=== PATIENT | female | born 1945 | race African-American/Black ===

== ENCOUNTER 2018-08-19 06:06 | Inpatient (IN) | payer OTHER ==
[~2018-08-19] VITALS: Ht 167.6 cm; Wt 79.4 kg
[2018-08-19] MEDS ORDERED: FERR18TA2 PO (06:54)
[2018-08-19] MEDS ORDERED: CLO01T PO (06:54)
[2018-08-19] MEDS ORDERED: NIFE30TA76 PO (06:54)
[2018-08-19] MEDS ORDERED: INS7030I SC (06:54)
[2018-08-19] MEDS ORDERED: FERR1TAB17 PO (06:54)
[2018-08-19] MEDS ORDERED: LISI10TA6 PO (06:54)
[2018-08-19] MEDS ORDERED: ATOR20TA50 PO (06:54)
[2018-08-19] MEDS ORDERED: CARV6.2551 PO (06:54)
[2018-08-19] MEDS ORDERED: ALLO100T PO (06:54)
[2018-08-19] MEDS ORDERED: HYDROcodone-ACET 10/325MG TAB PO ONE (07:00)
[2018-08-19] MEDS ORDERED: SODIUM CHLORIDE 0.9% 1,000 ML IV ONE (08:19)
[2018-08-19 08:52] LABS: Basophils # (auto) 0 uL; Basophils % (auto) 0.5 % (0.0-2.0); Eosinophils # (auto) 0 uL; Eosinophils % (auto) 0.5 % (0.0-7.0); Hematocrit 31.8 % (36.0-46.0); Hemoglobin 10.6 g/dL (12.2-16.2); Lymphocytes # (auto) 1.2 uL; Lymphocytes % (auto) 17.4 % (10.0-50.0); Mean Corpuscular Hemoglobin 31.3 pg (28.0-32.0); Mean Corpuscular Hgb Conc. 33.4 g/dL (32.0-36.0); Mean Corpuscular Volume 93.6 fL (80.0-100.0); Monocytes # (auto) 0.3 uL; Monocytes % (auto) 4.3 % (0.0-12.0); Neutrophils # (auto) 5.2 uL; Neutrophils % (auto) 77.3 % (37.0-80.0); Platelet Count (auto) 147 10^3/uL (140-450); Red Cell Distribution Width 15.5 % (11.8-14.3); White Blood Cell 6.7 10^3/uL (4.4-10.8)
[2018-08-19] MEDS ORDERED: ONDANSETRON HCL 4 MG/2 ML VIAL IV ONE (09:00)
[2018-08-19] MEDS ORDERED: MORPHINE SULFATE 4 MG/ML SYR/VIAL IV ONE (09:00)
[2018-08-19 09:11] LABS: Albumin 3.8 g/dL (3.4-5.0); Anion Gap 7 (5-15); Blood Urea Nitrogen 37 mg/dL (7-18); Calcium 9.3 mg/dL (8.5-10.1); Carbon Dioxide 21 mmol/L (21-32); Chloride 113 mmol/L (98-107); Glucose 128 mg/dL (74-106); Sodium 141 mmol/L (136-145)
[2018-08-19 09:13] LABS: Alanine Aminotransferase 33 U/L (13-56); Aspartate Aminotransferase 32 U/L (15-37); BUN/Creatinine Ratio 13.1; GFR African American 21 mL/min; GFR Non-African American 17 mL/min
[2018-08-19 09:18] LABS: Alkaline Phosphatase 65 U/L (45-117); Bilirubin, Total 0.3 mg/dL (0.2-1.0); Total Protein 8.5 g/dL (6.4-8.2)
[2018-08-19 09:41] LABS: Partial Thromboplastin Time 25.7 sec (23.78-33.04); Prothrombin Time 10.7 sec (9.27-12.13)
[2018-08-19] MEDS ORDERED: hydrALAZINE HCL 20 MG/ML VL IV PRN (13:00)
[2018-08-19] MEDS ORDERED: ACETAMINOPHEN 500 MG TAB PO PRN (13:00)
[2018-08-19] MEDS ORDERED: HYDROcodone-ACET 5/325MG TAB PO PRN (13:00)
[2018-08-19] MEDS ORDERED: ONDANSETRON HCL 4 MG/2 ML VIAL IV PRN (13:00)
[2018-08-19] MEDS ORDERED: DEXTROSE (50%) 50ML SYRG IV PRN (13:00)
--- NOTE | 2018-08-19 15:33 | NUR ---
MS admit from ER JESSEMIKIE admitted to tele/MS with chief c/o hip and back pain. Patient oriented to primary RN, unit, room, bed, and unit policies regarding patient care and visiting hours.instructed and educated on safety and pain mangement and turning.vital signs taken BP 160/79,room air 02 sat 100%,HR 66,temp 98.3 encouraged to call for assistance call light within reach. All questions and concerns addressed, patient verbalized understanding.
[2018-08-19] MEDS: ACCU-CHEK COMFORT CURVE STRIP VI SCH ×2 (17:00→21:39)
[2018-08-19] MEDS: InsuLIN REG 1unit/0.01ml Soln (100units/ml) SC SCH ×2 (18:57→22:01)
[2018-08-19] MEDS: MORPHINE SULF INJ 2 MG/ML SYRINGE 1ML IV PRN (18:58)
--- NOTE | 2018-08-19 19:05 | NUR ---
Opening Shift Note Assumed care of patient, awake and alert. No S/S of distress/SOB or pain. Instructed on POC and to call for assistance PRN, will continue to monitor for changes Q1hr and PRN.
--- NOTE | 2018-08-19 19:14 | NUR ---
STATUS UNCHANGED,REPORT GIVEN TO INCOMING NOC SHIFT RN ,NO DISTRESS.
[2018-08-19 21:30] VITALS: BP 163/73
[2018-08-19] MEDS: DOCUSATE SOD 100 MG CAP PO SCH (21:38)
[2018-08-19] MEDS: CARVEDILOL 3.125 MG TAB PO SCH (21:38)
[2018-08-19] MEDS: cloNIDine HCL 0.1 MG TAB PO SCH (21:39)
[2018-08-19] MEDS ORDERED: INSULIN LANTUS (GLARGINE) 1 /0.01ml (100units/ml) SC SCH (22:00)
[2018-08-19] MEDS ORDERED: ATORVASTATIN 20 MG TAB PO SCH (22:00)
--- NOTE | 2018-08-19 23:00 | NUR ---
Hospitalist paged Patient complaining of severe pain when helped onto the bedpan, also states has urinary urgency. Hospitalist paged for possible order for Arriaga catheter. Will await call back.
--- NOTE | 2018-08-19 23:05 | NUR ---
Hospitalist Jaswinder returned call Order given for mac catheter, orders read back and confirmed.
[2018-08-20] MEDS: MORPHINE SULF INJ 2 MG/ML SYRINGE 1ML IV PRN ×3 (03:32→17:13)
[2018-08-20 05:00] VITALS: BP 125/67
[2018-08-20] MEDS: ACCU-CHEK COMFORT CURVE STRIP VI SCH ×3 (06:45→17:13)
[2018-08-20] MEDS: InsuLIN REG 1unit/0.01ml Soln (100units/ml) SC SCH ×3 (06:45→17:14)
[2018-08-20 07:00] LABS: Cholesterol 167 mg/dL (< 200); HDL Cholesterol 40 mg/dL (40-59); LDL Cholesterol 117 mg/dL (< 100); Triglycerides 103 mg/dL (< 150)
[2018-08-20 08:30] VITALS: BP 134/57
[2018-08-20 09:00] VITALS: BP 134/57
[2018-08-20] MEDS: DOCUSATE SOD 100 MG CAP PO SCH (09:36)
[2018-08-20] MEDS: cloNIDine HCL 0.1 MG TAB PO SCH (09:36)
[2018-08-20] MEDS: CARVEDILOL 3.125 MG TAB PO SCH (09:37)
[2018-08-20] MEDS ORDERED: PANTOPRAZOLE 40 MG/10 ML VIAL IV SCH (10:00)
[2018-08-20] MEDS ORDERED: ALLOPURINOL 100 MG TAB PO SCH (10:00)
[2018-08-20] MEDS ORDERED: LISINOPRIL 10 MG TAB PO SCH (10:00)
[2018-08-20] MEDS ORDERED: NIFEdipine ER 30 MG TAB PO SCH (10:00)
[2018-08-20 10:15] LABS: Urine Bacteria FEW /hpf (None Seen); Urine Blood 2+ /uL (Negative); Urine Specific Gravity 1.005 (1.001-1.035); Urine WBC 3 /hpf (0 - 5)
--- NOTE | 2018-08-20 12:50 | NUR ---
TRANSFER: FAXED TO [facility] AND THE WILL CONTACT ME CRM CAMPAIGN MANAGER ON UNIT ONCE THEY GET FACILITY
[2018-08-20 13:00] VITALS: BP 134/71
--- NOTE | 2018-08-20 14:54 | NUR ---
GAGANDEEP BLANKENSHIP AT [facility]. PT IS GOING TO [facility] RM 403 AND PH # FOR REPORT IS [phone]. ACCEPTING MD IS . [facility] WILL TANK CAR CLEANER PT APPROX [address]00 HRS. [facility] PH # IS [phone] Addendum: 08/20/18 at 1641 [place] [phone]
--- NOTE | 2018-08-20 15:30 | NUR ---
TRANSFER Patient informed about transfer to [facility]. Patient expressed she does not want to go to [place] and wants to stay local. Educated patient on importance of transfer. Patient still refusing at this time. Phone call placed to retail property manager Irene to make aware. Irene will notify choice child support case officer and they will contact patient.
--- NOTE | 2018-08-20 16:00 | NUR ---
CHOICE CAKE CUTTER MACHINE Patient provided information to speak with choice counter caser. After speaking with [facility] Visiting Teacher patient agrees to transfer to [facility].
--- NOTE | 2018-08-20 16:43 | NUR ---
Report called to RN at accepting facility, see transfer report for details. Patient notified family.
--- NOTE | 2018-08-20 16:45 | NUR ---
IMAGING TRANSFER DISC Transfer disc in packet.
[2018-08-20 17:00] VITALS: BP 158/69
--- NOTE | 2018-08-20 17:30 | NUR ---
[facility] arrived to transport patient. Discharge instructions given as ordered. Encourage to follow up with PMD as instructed. All questions and concerns addressed. Patient verbalized understanding. Medication reconciliation form completed and copy given to patient. Home medications held in Pharmacy returned to patient. IV to remain intact as well as mac catheter. Patient taken to vehicle via wheelchair with all personal belongings, accompanied by staff and family member. No distress noted at time of departure.
== END 2018-08-20 17:27 | disposition short-term general hospital (02) | DRG 552 ==
LOC: EDBD 06:06 → ER 06:06 → OVERFLOW 12:57 → WEST WING 15:28
PROVIDERS: ADMIT Nurse Practitioner Acute Care; ATTEND Internal Medicine Geriatric Medicine
DX: S32.10XA Unspecified fracture of sacrum, initial encounter for closed fracture (principal); S32.511A Fracture of superior rim of right pubis, initial encounter for closed fracture; N18.4 Chronic kidney disease, stage 4 (severe); M10.9 Gout, unspecified; Z96.653 Presence of artificial knee joint, bilateral; I12.9 Hypertensive chronic kidney disease with stage 1 through stage 4 chronic kidney disease, or unspecified chronic kidney disease; E66.9 Obesity, unspecified; E11.22 Type 2 diabetes mellitus with diabetic chronic kidney disease; D64.9 Anemia, unspecified; Y04.2XXA Assault by strike against or bumped into by another person, initial encounter; Z79.4 Long term (current) use of insulin; Z79.899 Other long term (current) drug therapy; Z90.710 Acquired absence of both cervix and uterus; Z68.28 Body mass index [BMI] 28.0-28.9, adult; Y93.89 Activity, other specified; Y92.89 Other specified places as the place of occurrence of the external cause; Y99.8 Other external cause status
CPT/HCPCS: 36415; 70450; 71045; 72131; 72192; 80053; 80061; 81001; 82962; 83036; 83880; 84443; 84484; 85025; 85610; 85730; 96374; 96375; C9113; G0378; J1815; J2405

== ENCOUNTER 2023-02-05 15:56 | Emergency (ER) | payer OTHER ==
[~2023-02-05] VITALS: Ht 167.6 cm; Wt 66.0 kg
[~2023-02-05 15:56] MED LIST: ALLO100T PO; ATOR20TA50 PO; CARV6.2551 PO; CLO01T PO; FERR18TA2 PO; FERR1TAB17 PO; INS7030I SC; LISI10TA34 PO; NIFE1TAB31 PO
[2023-02-05] MEDS ORDERED: MORPHINE SULFATE 4 MG/ML SYR/VIAL IV ONE (18:30)
[2023-02-05 19:33] LABS: Hematocrit 40.6 % (36.0-46.0); Hemoglobin 12.7 g/dL (12.2-16.2); Mean Corpuscular Hemoglobin 30.3 pg (28.0-32.0); Mean Corpuscular Hgb Conc. 31.3 g/dL (32.0-36.0); Mean Corpuscular Volume 96.7 fL (80.0-100.0); Red Cell Distribution Width 18.8 % (11.8-14.3); White Blood Cell 12.7 10^3/uL (4.4-10.8)
[2023-02-05 19:37] LABS: Basophils % (manual) 0 (0.0-2.0); Blast Cells 0; Eosinophils % (manual) 0 (0-7); Metamyelocytes % 0; Myelocytes % 0; Promyelocytes % 0; Reactive Lymphocytes 0
[2023-02-05 19:59] LABS: Alanine Aminotransferase 10 U/L (7-40); Albumin 3.5 g/dL (3.2-4.8); Alkaline Phosphatase 123 U/L (46-116); Anion Gap 12.8 (5-15); Aspartate Aminotransferase 11 U/L (13-40); BUN/Creatinine Ratio 2.8 (10.0-20.0); Bilirubin, Total 0.2 mg/dL (0.2-1.0); Blood Urea Nitrogen 43 mg/dL (9-23); Calcium 8.9 mg/dL (8.7-10.4); Carbon Dioxide 27.2 mmol/L (20-30); Chloride 101 mmol/L (98-107); Glucose 103 mg/dL (74-106); Potassium 4.1 mmol/L (3.5-5.1); Sodium 141 mmol/L (136-145); Total Protein 6.1 g/dL (5.7-8.2)
[2023-02-05 20:19] LABS: Band Neutrophils % (manual) 1; Lymphocytes % (manual) 10 (10.0-50.0); Monocytes % (manual) 5 (0-12); Platelet Estimate Adequate
[2023-02-05 20:21] LABS: Anisocytosis Slight; Tear Drop Cells FEW
[2023-02-05 23:15] VITALS: BP 151/82; PULSE 77; RESP 16; TEMP 98.6; O2SAT 99
== END 2023-02-05 23:22 | disposition home or self-care (01) ==
LOC: EDUNIT# 15:56 → ER 15:56 → EDBD 15:56 → ER 23:18
DX: M25.561 Pain in right knee (principal); M25.551 Pain in right hip; I12.0 Hypertensive chronic kidney disease with stage 5 chronic kidney disease or end stage renal disease; E11.22 Type 2 diabetes mellitus with diabetic chronic kidney disease; N18.6 End stage renal disease; Z90.710 Acquired absence of both cervix and uterus; Z99.2 Dependence on renal dialysis; Z88.8 Allergy status to other drugs, medicaments and biological substances; Z79.899 Other long term (current) drug therapy; Z79.84 Long term (current) use of oral hypoglycemic drugs; W18.39XA Other fall on same level, initial encounter; Y93.89 Activity, other specified; Y92.89 Other specified places as the place of occurrence of the external cause; Y99.8 Other external cause status
CPT/HCPCS: 36415; 73502; 73562; 80053; 85007; 85027; 96374; 99284; J2270

== ENCOUNTER 2024-06-25 11:35 | Inpatient (IN) | payer OTHER ==
[~2024-06-25] VITALS: Ht 167.6 cm; Wt 72.2 kg
--- NOTE | 2024-06-25 11:58 | ED.PDOC ---
History of Present Illness(SKN HPI Comments 79 year old female CORIE presents to the ED with chief complaint of bed sore. EMS reports patient had recent left hip replacement performed 1.5 months ago and has had a home health nurse visit the home 3 times a week to clean the patient. EMS relays that the patient's family has not assisted in the cleaning of the patient when the nurse is not present. EMS states a wound was found on the patient's back that has a foul smell and what appears to be feces contaminating the wound. EMS notes patient has pain to the region. EMS reports patient's BG was noted to be 497 on scene. Patient denies any N/V/D, dizziness, chest pain, fever, chills, SOB, or abdominal pain. Time Seen by MD: 11:52 Primary Care Provider: Sae GERARDO History of Present Illness: Nurses Notes, Environmental Department Manager Notes, Medications, Allergies Allergies: Coded Allergies: Metformin (Verified Allergy, Unknown, 02/05/23) Home Meds Reported Medications Allopurinol (Allopurinol) 100 Mg Tab, 100 MG PO DAILY, MG 08/19/18 Atorvastatin Calcium (ATORVASTATIN CALCIUM) 20 Mg Tab, 1 TAB PO DAILY, #30 TAB 5 Refills 08/19/18 Ferric Citrate (Auryxia) 210 Mg Tab, 210 MG PO TID, TAB 08/19/18 Ferrous Fumarate (Iron) 18 Mg Tab, 6 MG PO DAILY, TAB 08/19/18 Insulin Isophane & Reg (Human) (Humulin 70/30 (70-30) 100 Unit/ml) 1 Units/0.01 Ml Inj, 25 UNITS SC DAILY, INJ 08/19/18 Insulin Isophane & Reg (Human) (Humulin 70/30 (70-30) 100 Unit/ml) 1 Units/0.01 Ml Inj, 50 UNITS SC DAILY, INJ 08/19/18 Carvedilol (Carvedilol) 6.25 Mg Tab, 6.25 MG PO DAILY, MG 08/19/18 Lisinopril (Lisinopril) 10 Mg Tab, 10 MG PO DAILY, TAB 08/19/18 Clonidine Hcl (CATAPRES TABLET) 0.1 Mg Tb, 0.1 MG PO BID 08/19/18 Nifedipine (Nifedipine Er) 30 Mg Tab, 1 TAB PO DAILY, #90 TAB 1 Refill 08/19/18 Information Source: Patient, Emergency Med Personnel Mode of Arrival: EMS Severity: Moderate Timing: Days Duration: Since onset Prehospital treatment: None Location: Back Mechanism: Preceding Wound Occurence: Indoors Object: None Condition of Object: Contaminated, Dirty Retained Foreign Body: No Wound Type: Unknown Immunization Status of Animal: NA Tetanus: Unknown History of: None Associated Signs and Symptoms: Redness, Pus, Pain Past Medical History PAST MEDICAL HISTORY: Dementia, DM, ESRD, HTN Surgical History: Hysterectomy Surgical History (Other): Left hip replacement AUTO TRANSMISSION MECHANIC History: No Pertinent AUTO TRANSMISSION MECHANIC History Family History Family History: Reviewed,noncontributory to illness Social History Smoker: Non-Smoker Alcohol: Denies ETOH Use Drugs: Denies Drug Use Lives In: Home Constitutional: denies: chills, diaphoresis, fatigue, fever, malaise, sweats, weakness, others EENTM: denies: blurred vision, double vision, ear bleeding, ear discharge, ear drainage, ear pain, ear ringing, eye pain, eye redness, hearing loss, mouth pain, mouth swelling, nasal discharge, nose bleeding, nose congestion, nose pain, photophobia, tearing, throat pain, throat swelling, voice changes, others Respiratory: denies: cough, hemoptysis, orthopnea, SOB at rest, shortness of breath, SOB with excertion, stridor, wheezing, others Cardiovascular: denies: chest pain, dizzy spells, diaphoresis, Dyspnea on exertion, edema, irregular heart beat, left arm pain, lightheadedness, palpitations, PND, syncope, others Gastrointestinal: denies: abdomen distended, abdominal pain, blood streaked bowels, constipated, diarrhea, dysphagia, difficulty swallowing, hematemesis, me bony, nausea, poor appetite, poor fluid intake, rectal bleeding, rectal pain, vomiting, others Genitourinary: denies: abnormal vagina bleeding, burning, dyspareunia, dysuria, flank pain, frequency, hematuria, incontinence, pain, , vagina discharge, urgency, others Neurological: denies: dizziness, fainting, headache, left sided numbness, left sided weakness, numbness, paresthesia, pre-existing deficit, right sided numbness, right sided weakness, seizure, speech problems, tingling, tremors, weakness, others Musculoskeletal: denies: back pain, gout, joint pain, joint swelling, muscle pain, muscle stiffness, neck pain, others Integumetry: reports: wounds (Unclean wound to back w/ smell); denies: bruises, change in color, change in hair/nails, dryness, laceration, lesions, lumps, rash, others Allergic/Immunocompromised: denies: Difficulty Healing, Frequent Infections, Hives, Itching, others Hematologic/Lymphatic: denies: anemia, blood clots, easy bleeding, easy bruising, swollen glands, others Endocrine: denies: excessive hunger, excessive sweating, excessive thirst, excessive urination, flushing, intolerance to cold, intolerance to heat, unexplained weight gain, unexplained weight loss, others Psychiatric: denies: anxiety, bipolar disorder, depression, hopeless, panic disorder, schizophrenia, sleepless, suicidal, others All Other Systems: Reviewed and Negative Physical Exam General Appearance: Moderate Distress, Normal HEENT: Normal ENT Inspection, PERRL/EOMI Neck: Full Range of Motion, Non-Tender, Normal, Normal Inspection Respiratory: Chest Non-Tender, Lungs Clear, No Accessory Muscle Use, No Respiratory Distress, Normal Breath Sounds Cardiovascular: No Edema, No JVD, No Murmur, No Gallop, Normal Peripheral Pulses, Regular Rate/Rhythm Breast Exam: Deferred Gastrointestinal: No Organomegaly, Non Tender, No Pulsatile Mass, Normal Bowel Sounds, Soft Genitalia: Deferred Pelvic: Deferred Rectal: Deferred Extremities: No calf tenderness, Normal capillary refill, Normal inspection, Normal range of motion, Non-tender, No pedal edema Musculoskeletal : Apperance: Normal Neurologic: Alert (To name) Cerebellar Function: NOT DONE Reflexes: NOT DONE Skin: Dry, Normal Color, Warm Peripheral Pulses: 3+ Radial (R), 3+ Radial (L) Lymphatic: No Adenopathy Was a procedure done? Was a procedure done?: No Differential Diagnosis (INTG) Differential Diagnosis: Cellulitis, Hematoma X-Ray, Labs, Meds, VS Vital Signs Date Time Temp Pulse Resp B/P (MAP) Pulse Ox O2 Delivery O2 Flow Rate FiO2 06/25/24 12:00 98.2 88 22 108/54 (72) 100 Lab Test 06/25/24 12:13 Range/Units White Blood Count 14.0 H 4.4-10.8 10^3/uL Red Blood Count 3.21 L 4.0-5.20 10^6/uL Hemoglobin 9.4 L 12.2-16.2 g/dL Hematocrit 30.2 L 36.0-46.0 % Mean Corpuscular Volume 94.1 80.0-100.0 fL Mean Corpuscular Hemoglobin 29.3 28.0-32.0 pg Mean Corpuscular Hemoglobin Concent 31.1 L 32.0-36.0 g/dL Red Cell Distribution Width 15.7 H 11.8-14.3 % Platelet Count 218 140-450 10^3/uL Mean Platelet Volume 7.8 6.9-10.8 fL Neutrophils (%) (Auto) 37.0-80.0 % Lymphocytes (%) (Auto) 10.0-50.0 % Monocytes (%) (Auto) 0.0-12.0 % Basophils (%) (Auto) 0.0-2.0 % Neutrophils # (Auto) 1.6-8.6 10 ^3/uL Lymphocytes # (Auto) 0.4-5.4 10 ^3/uL Monocytes # (Auto) 0-1.3 10 ^3/uL Differential Total Cells Counted Pending Neutrophils % (Manual) Pending Band Neutrophils % (Manual) Pending Lymphocytes % (Manual) Pending Monocytes % (Manual) Pending Eosinophils % (Manual) Pending Basophils % (Manual) Pending Metamyelocytes % (manual) Pending Myelocytes % (Manual) Pending Promyelocytes % (Manual) Pending Blast Cells % (Manual) Pending Reactive Lymphocytes Pending Platelet Estimate Pending Sodium Level 128 L 136-145 mmol/L Potassium Level 2.9 L 3.5-5.1 mmol/L Chloride Level 88 L 98-107 mmol/L Carbon Dioxide Level 24 20-31 mmol/L Anion Gap 16 H 5-15 Blood Urea Nitrogen 55 H 9-23 mg/dL Creatinine 5.21 H 0.550-1.02 mg/dL Glomerular Filtration Rate Calc 8 >90 mL/min BUN/Creatinine Ratio 10.6 10.0-20.0 Serum Glucose 397 H 74-106 mg/dL Lactic Acid Level 5.9 *H 0.4-2.0 mmol/L Calcium Level 8.3 L 8.7-10.4 mg/dL Troponin I High Sensitivity Pending Patient baseline. Answers to name. History of dementia. Vitals stable. Possible decubitus. Establish intravenous access. Was given fluids. Had hip surgery. Bed ridden. Was given Zosyn. Waiting for family. Continue cardiac monitoring. EKG reviewed does not show any acute changes. Time of 1ST Reevaluation: 12:52 Reevaluation 1ST: Unchanged Patient Education/Counseling: Diagnosis, Treatment Family Education/Counseling: No Family Present Additional Information I reviewed the following notes from patient's past medical encounters: 02/05/23 for fall The following tests were ordered, and results were reviewed by me: CBC, BMP, Blood Culture, Lactic Acid, CT Abd/Pel Additional Information was gathered from interviewing the following independent historians: EMS I reviewed and agreed with the following test results read by other providers: CT Abd/Pel I discussed treatment and results with medical personnel. Departure 1 Departure Time of Disposition: 12:40 Impression: Primary Impression: Sepsis Qualified Codes: A41.9 - Sepsis, unspecified organism Additional Impression: Decubitus skin ulcer Qualified Codes: L89.159 - Pressure ulcer of sacral region, unspecified stage Disposition: ADMITTED INPATIENT Admit to: Med Surg Condition: Guarded Critical Care Note Critical Care Time?: Yes (90 min-critical care time only) Stability Stability form required: No Heart Score Heart Score: Heart Score Response (Comments) Value History Slightly Suspicious 0 EKG Normal 0 Age >65 2 Risk Factors >3 or Hx ASHD 2 Troponin Normal limit 0 Total 4 I personally scribed for DORA WATSON MD ([email or web address]) on 06/25/24 at 11:58. Electronically submitted by Jesus Salazar ([email or web address]). DORA WATSON MD Jun 25, 2024 11:58
[2024-06-25 12:41] LABS: Hemoglobin 9.4 g/dL (12.2-16.2)
[2024-06-25 12:44] LABS: Hematocrit 30.2 % (36.0-46.0); Mean Corpuscular Hemoglobin 29.3 pg (28.0-32.0); Mean Corpuscular Hgb Conc. 31.1 g/dL (32.0-36.0); Mean Corpuscular Volume 94.1 fL (80.0-100.0); Platelet Count (auto) 218 10^3/uL (140-450); Red Blood Cells 3.21 10^6/uL (4.0-5.20); Red Cell Distribution Width 15.7 % (11.8-14.3)
--- NOTE | 2024-06-25 12:44 | DVH ---
EXAM: XY CHEST PORTABLE Indication: sob Technique: Single frontal view of the chest was obtained Comparison: None FINDINGS: Lines and Tubes: None Lungs: No focal consolidation. Pleura: No effusion. No pneumothorax. Cardiomediastinal contours: Unremarkable Bones: No acute osseous abnormality. IMPRESSION: No acute cardiopulmonary disease.
[2024-06-25 12:55] LABS: Anion Gap 16 (5-15); Carbon Dioxide 24 mmol/L (20-31)
[2024-06-25 12:57] LABS: Basophils % (manual) 0 (0.0-2.0); Blast Cells 0; Eosinophils % (manual) 0 (0-7); Metamyelocytes % 0; Myelocytes % 0; Promyelocytes % 0; Reactive Lymphocytes 0
[2024-06-25 13:00] LABS: BUN/Creatinine Ratio 10.6 (10.0-20.0)
[2024-06-25 13:08] LABS: Blood Urea Nitrogen 55 mg/dL (9-23); Calcium 8.3 mg/dL (8.7-10.4); Chloride 88 mmol/L (98-107); Glucose 397 mg/dL (74-106); Potassium 2.9 mmol/L (3.5-5.1); Sodium 128 mmol/L (136-145)
--- NOTE | 2024-06-25 13:09 | DVH ---
CT ABDOMEN AND PELVIS WITHOUT CONTRAST CLINICAL HISTORY: ulcer TECHNIQUE: Multiple contiguous axial images of the abdomen and pelvis without intravenous contrast. The images were reformatted degenerate coronal and sagittal reconstructions. All CT scans at this medical facility are performed using dose modulation techniques as appropriate t o a performed exam including the following:Automated exposure control was utilized; adjustment of the MA and/or KV according to patient size; and use of iterative reconstruction technique. Radiation Dose Information: CT Dose: CTDI volume is 8.64 mGy. Dose-length product is 437.29 mGy*cm Comparison: None FINDINGS: Evaluation of the abdomen and pelvis is limited without intravenous contrast. The liver demonstrates cirrhotic morphology with nodular surface contour. There is no gross evidence of a hepatic lesion. There is perihepatic and perisplenic ascites. There are dependently layering gallstones within the gallbladder. There is a 9 mm calculus in the left renal pelvis. There are additional small bilateral renal calcul i along with vascular calcifications. There is no hydronephrosis. The pancreas, adrenal glands, and spleen appear within normal limits. There is a peritoneal catheter with the tip in the left abdomen. There is small amount of ascites. Th ere is no free intraperitoneal air. The stomach grossly appears unremarkable. The visualized small and large bowel loops demonstrate nor mal caliber. There are scattered diverticula in the distal colon without evidence of acute diverticu litis. The abdominal aorta and IVC appear within normal limits. There is moderate streak artifact from bilateral hip arthroplasties which limits evaluation of the pe lvis. The bladder and pelvic organ are not adequately seen. Pelvic organ appears within normal limits . There is free fluid in the pelvis. There is soft tissue defect in the midline and right gluteal soft tissues relating to decubitus ulcer . There is subcutaneous emphysema tracking from the ulcers into the gluteal tissues bilaterally. Th ere is air tracking in the right posterior perineal region along the right posterior anus. There is no discrete fluid collection to suggest abscess. Evaluation of the regional osseous structures is chau ited secondary to motion and streak artifact. Lung bases are clear. There is no acute osseous abnormality. IMPRESSION: 1. Soft tissue defect in the midline and right gluteal soft tissues relating to decubitus ulcer. Ther e is subcutaneous emphysema tracking from the ulcer into the gluteal tissues bilaterally. There is a lso air tracking into the right posterior peritoneal region. There is no discrete fluid collection to suggest abscess. Evaluation of the regional osseous structures limited secondary 2 motion and streak artifact. 2. Hepatic cirrhosis with ascites. 3. Bilateral renal calculi including a 9 mm calculus in the left renal pelvis. There is no hydronephr osis. 4. Cholelithiasis. HS:Y
[2024-06-25 13:10] LABS: Lactic Acid w/Reflex 5.9 mmol/L (0.4-2.0)
[2024-06-25 13:51] LABS: Band Neutrophils % (manual) 6; Lymphocytes % (manual) 12 (10.0-50.0); Monocytes % (manual) 1 (0-12)
[2024-06-25 13:52] LABS: Large Platelets FEW; Platelet Estimate Adequate; Polychromasia Slight
[2024-06-25] MEDS: SODIUM CHLORIDE 0.9% 1,000 ML IV ONE (16:50)
[2024-06-25] MEDS: CLINDAMYCIN 600MG IV 50 ML IV ONE (16:50)
[2024-06-25] MEDS: PIPERACILLIN-TAZOB 3.375GM 100 ML IV ONE (16:51)
[2024-06-25 17:15] VITALS: O2SAT 97
[2024-06-25] MEDS ORDERED: ACETAMINOPHEN 325 MG TAB PO PRN (18:45)
[2024-06-25] MEDS ORDERED: ONDANSETRON HCL 4 MG/2 ML VIAL IV PRN (18:45)
[2024-06-25] MEDS ORDERED: DEXTROSE (50%) 50ML SYRG IV PRN (18:45)
[2024-06-25] MEDS: ATORVASTATIN 20 MG TAB PO SCH (22:00)
[2024-06-25] MEDS ORDERED: CLINDAMYCIN 600MG IV 50 ML IV SCH (22:00)
[2024-06-26 04:15] VITALS: PULSE 90; RESP 17; O2SAT 99
[2024-06-26] MEDS: SODIUM CHLORIDE 0.9% 1,000 ML IV ONE ×2 (04:21→05:30)
--- NOTE | 2024-06-26 04:48 | DVHHP2 ---
History of Present Illness Reason for Visit: Generalized weakness History of Present Illness 79-year-old female presents for evaluation of generalized weakness. Patient presents for evaluation of worsening fatigue. Patient is bed ridden. Patient noted to have a pressure ulcer to sacral area. Patient is status post left hip replacement two months ago. Patient is mildly lethargic and is a poor historian. Past Medical History Hypertension, end-stage renal disease, diabetes mellitus, dementia Past Surgical History Left hip replacement and hysterectomy Family History Noncontributory Smoke: No ALCOHOL: none Drugs: None Lives: with Family Review of Systems Review of Systems Review of systems are currently negative otherwise addressed in HPI. Allergies: Coded Allergies: Metformin (Verified Allergy, Unknown, 02/05/23) Medications Current Medications Medications Dose Ordered Sig/Antonio Route Start Time Stop Time Status Last Admin Dose Admin Metoprolol Tartrate 25 mg BID PO 06/25/24 22:00 Carbidopa/Levodopa 1 tab TID PO 06/25/24 22:00 Atorvastatin Calcium 20 mg HS PO 06/25/24 22:00 Clindamycin Phosphate 50 ml @ 50 mls/hr Q8HR IV 06/25/24 22:00 Ceftriaxone Sodium 50 ml @ 100 mls/hr DAILY@09 IV 06/26/24 09:00 Diagnostic Test (Pha) 1 strip ACHS 06/25/24 22:00 Insulin Human Regular ACHS SC 06/25/24 22:00 Dextrose 50 ml UD PRN IV 06/25/24 18:45 Acetaminophen/ Hydrocodone Bitart 1 tab Q4HP PRN PO 06/25/24 18:45 Ondansetron HCl 4 mg Q4HP PRN IV 06/25/24 18:45 Acetaminophen 650 mg Q6HP PRN PO 06/25/24 18:45 Exam Vital Signs Vital Signs Date Time Temp Pulse Resp B/P (MAP) Pulse Ox O2 Delivery O2 Flow Rate FiO2 06/25/24 18:47 77 18 122/58 (79) 96 06/25/24 17:15 Room Air* 0 21 06/25/24 17:11 98.1 98.1 Exam Gen: 79-year-old female in mild distress Skin: Warm, dry, normal color and texture, no rash. HEENT: Normocephalic atraumatic, mucous membranes moist and pink. Neck: Cervical and supraclavicular nodes normal without enlargement, trachea is midline, thyroid gland is normal without masses. Pulmonary: Clear to auscultation and percussion bilaterally. Cardiac: Regular rate and rhythm. No murmur Abdomen: Soft, nontender, nondistended, bowel sounds present all 4 quadrants, no guarding, no rigidity, no organomegaly. Extremities: No cyanosis, clubbing, no edema Neuro: Cranial nerves II through XII grossly intact, normal affect and speech, no focal motor deficits. Labs/Xrays ORDERING PHYSICIAN: DORA WATSON MD PROCEDURE(s): CXRP - CHEST PORTABLE REASON: sob ORDER NUMBER(s): [id number], ACCESSION NUMBER(s): [id number] EXAM: XY CHEST PORTABLE Indication: sob Technique: Single frontal view of the chest was obtained Comparison: None FINDINGS: Lines and Tubes: None Lungs: No focal consolidation. Pleura: No effusion. No pneumothorax. Cardiomediastinal contours: Unremarkable Bones: No acute osseous abnormality. IMPRESSION: No acute cardiopulmonary disease. RING PHYSICIAN: DORA WATSON MD PROCEDURE(s): ABPL - CT AB PEL WO CON-NO ORAL OR IV REASON: ulcer ORDER NUMBER(s): [id number], ACCESSION NUMBER(s): [id number] CT ABDOMEN AND PELVIS WITHOUT CONTRAST CLINICAL HISTORY: ulcer TECHNIQUE: Multiple contiguous axial images of the abdomen and pelvis without intravenous contrast. The images were reformatted degenerate coronal and sag ittal reconstructions. All CT scans at this medical facility are performed using dose modulation techniques as appropriate to a performed exam including the following:Automated exposure control was utilized; adjustment of the MA and/or KV according to pat ient size; and use of iterative reconstruction technique. Radiation Dose Information: CT Dose: CTDI volume is 8.64 mGy. Dose-length product is 437.29 mGy*cm Comparison: None FINDINGS: Evaluation of the abdomen and pelvis is limited without intravenous contrast. The liver demonstrates cirrhotic morphology with nodular surface contour. There is no gross evidence of a hepatic lesion. There is perihepatic and perisplenic ascites. There are dependently layering gallstones within the gallbladder. There is a 9 mm calculus in the left renal pelvis. There are additional small bilateral renal calculi along with vascular calcifications. There is no hydronephrosis. The pancreas, adrenal glands, and spleen appear within normal limits. There is a peritoneal catheter with the tip in the left abdomen. There is small amount of ascites. There is no free intraperitoneal air. The stomach grossly appears unremarkable. The visualized small and large bowel loops demonstrate normal caliber. There are scattered diverticula in the distal colon without evidence of acute diverticulitis. The abdominal aorta and IVC appear within normal limits. There is moderate streak artifact from bilateral hip arthroplasties which limits evaluation of the pelvis. The bladder and pelvic organ are not adequately seen. Pelvic organ appears within normal limits. There is free fluid in the pelvis. There is soft tissue defect in the midline and right gluteal soft tissues relating to decubitus ulcer. There is subcutaneous emphysema tracking from the ulcers into the gluteal tissues bilaterally. There is air tracking in the right posterior perineal region along the right posterior anus. There is no discrete fluid collection to suggest abscess. Evaluation of the regional osseous structur es is limited secondary to motion and streak artifact. Lung bases are clear. There is no acute osseous abnormality. IMPRESSION: 1. Soft tissue defect in the midline and right gluteal soft tissues relating to decubitus ulcer. There is subcutaneous emphysema tracking from the ulcer into the gluteal tissues bilaterally. There is also air tracking into the right posterior peritoneal region. There is no discrete fluid collection to suggest abscess. Evaluation of the regional osseous structures limited secondary 2 motion and streak artifact. 2. Hepatic cirrhosis with ascites. 3. Bilateral renal calculi including a 9 mm calculus in the left renal pelvis. There is no hydronephrosis. 4. Cholelithiasis. HS:Y Labs Test 06/25/24 20:50 06/25/24 12:13 Range/Units Lactic Acid Level 4.1 *H 0.4-2.0 mmol/L White Blood Count 14.0 H 4.4-10.8 10^3/uL Red Blood Count 3.21 L 4.0-5.20 10^6/uL Hemoglobin 9.4 L 12.2-16.2 g/dL Hematocrit 30.2 L 36.0-46.0 % Mean Corpuscular Volume 94.1 80.0-100.0 fL Mean Corpuscular Hemoglobin 29.3 28.0-32.0 pg Mean Corpuscular Hemoglobin Concent 31.1 L 32.0-36.0 g/dL Red Cell Distribution Width 15.7 H 11.8-14.3 % Platelet Count 218 140-450 10^3/uL Mean Platelet Volume 7.8 6.9-10.8 fL Neutrophils (%) (Auto) 37.0-80.0 % Lymphocytes (%) (Auto) 10.0-50.0 % Monocytes (%) (Auto) 0.0-12.0 % Basophils (%) (Auto) 0.0-2.0 % Neutrophils # (Auto) 1.6-8.6 10 ^3/uL Lymphocytes # (Auto) 0.4-5.4 10 ^3/uL Monocytes # (Auto) 0-1.3 10 ^3/uL Differential Total Cells Counted 100.0 100 Neutrophils % (Manual) 81 H 37.0-80.0 Band Neutrophils % (Manual) 6 Lymphocytes % (Manual) 12 10.0-50.0 Monocytes % (Manual) 1 0-12 Eosinophils % (Manual) 0 0-7 Basophils % (Manual) 0 0.0-2.0 Metamyelocytes % (manual) 0 Myelocytes % (Manual) 0 Promyelocytes % (Manual) 0 Blast Cells % (Manual) 0 Reactive Lymphocytes 0 Platelet Estimate Adequate Large Platelets Few Polychromasia Slight Sodium Level 128 L 136-145 mmol/L Potassium Level 2.9 L 3.5-5.1 mmol/L Chloride Level 88 L 98-107 mmol/L Carbon Dioxide Level 24 20-31 mmol/L Anion Gap 16 H 5-15 Blood Urea Nitrogen 55 H 9-23 mg/dL Creatinine 5.21 H 0.550-1.02 mg/dL Glomerular Filtration Rate Calc 8 >90 mL/min BUN/Creatinine Ratio 10.6 10.0-20.0 Serum Glucose 397 H 74-106 mg/dL Calcium Level 8.3 L 8.7-10.4 mg/dL Troponin I High Sensitivity 13 </=34 ng/L Assessment/Plan Assessment/Plan Assessment Sepsis Infected decubitus ulcer Diabetes mellitus End-stage renal disease Hypertension Bed ridden Plan Admit the patient to Med surge to the hospitalist Rocephin/clindamycin Wound consult Nephrology consultation Resume home medications Continue treatment per orders. Plan discussed with: Other My Orders Orders - BRANDON PEDERSON Procedure Category Date Status Time * Wound Consult CONS 06/25/24 Transmitted Wound Culture W/ Gs KAYLA 06/25/24 Logged 18:37 Metoprolol Tartrate PHA 06/25/24 In Process Tablet (Lopressor Ta 22:00 Carbidopa W Levodopa PHA 06/25/24 In Process 25/100mg (Sinemet 2 22:00 Atorvastatin (Lipitor) PHA 06/25/24 In Process 22:00 Clindamycin 600mg Iv PHA 06/25/24 In Process (Cleocin Iv) 22:00 Ceftriaxone 1gm/50ml PHA 06/26/24 In Process D5w (Rocephin) 09:00 Basic Metabolic Panel LAB 06/26/24 Logged 04:00 Glucose Blood PHA 06/25/24 In Process (Accu-Chek Comfort 22:00 Insulin R (Human) PHA 06/25/24 In Process (Insulin R) 22:00 Dextrose 50% Syringe PHA 06/25/24 In Process 18:45 Admit ADMIT 06/25/24 Transmitted 18:37 Renal DIET 06/26/24 Transmitted Standard(2gna,3gk,Lopho) Breakfast Hydrocodone-Acet PHA 06/25/24 In Process 5/325mg Tab ([place] 18:45 Ondansetron Hcl PHA 06/25/24 In Process (Zofran) 18:45 Complete Blood Count LAB 06/26/24 Logged 04:00 Condition: Stable ALFREDO 06/25/24 In Process 18:37 Acetaminophen Tablet PHA 06/25/24 In Process (Tylenol Tablet) 18:45 Maintain Bed Rest ALFREDO 06/25/24 In Process 18:37 Sequential ALFREDO 06/25/24 In Process Compression Device *Dr. [facility] CONS 06/25/24 Transmitted -[place] 18:37 Date of Service: Jun 25, 2024 Billing Provider: BRANDON PEDERSON Common Visit Codes: [id number] INP/OBS CARE (HIGH) BRANDON PEDERSON Jun 26, 2024 04:48
[2024-06-26] MEDS: CLINDAMYCIN 600MG IV 50 ML IV SCH (05:31)
[2024-06-26] MEDS: PIPERACILLIN-TAZOB 3.375GM 100 ML IV ONE (05:48)
[2024-06-26] MEDS: METOPROLOL TARTRATE 25 MG TAB PO SCH (05:49)
[2024-06-26] MEDS: CARBIDOPA W LEVODOPA 25/100mg TABLET PO SCH (05:49)
[2024-06-26] MEDS: InsuLIN REG 1unit/0.01ml Soln (100units/ml) SC SCH (05:50)
[2024-06-26] MEDS: ACCU-CHEK COMFORT CURVE STRIP VI SCH (05:50)
[2024-06-26] MEDS: NOREPINEPHRINE 8 MG/250ML KIT 250 ML IV SCH ×2 (06:30→13:41)
[2024-06-26] MEDS ORDERED: VANCOMYCIN PER PHARMACY 0 MG IV SCH ×2 (06:30→07:00)
[2024-06-26] MEDS: VANCOMYCIN 1.25gm/250mL PREMIX or KIT IV ONE (06:45)
[2024-06-26] MEDS: PIPERACILLIN-TAZOB 2.25GM 50 ML IV ONE (06:51)
[2024-06-26 06:54] LABS: Anion Gap 15 (5-15); Carbon Dioxide 21 mmol/L (20-31)
[2024-06-26 06:59] LABS: BUN/Creatinine Ratio 11.5 (10.0-20.0)
[2024-06-26 07:00] LABS: Blood Urea Nitrogen 59 mg/dL (9-23); Calcium 7.9 mg/dL (8.7-10.4); Chloride 96 mmol/L (98-107); Glucose 223 mg/dL (74-106); Potassium 2.7 mmol/L (3.5-5.1); Sodium 132 mmol/L (136-145)
[2024-06-26 07:23] LABS: Magnesium 1.7 mg/dL (1.6-2.6)
[2024-06-26 07:25] LABS: Phosphorus 5.9 mg/dL (2.4-5.1)
[2024-06-26 08:38] LABS: Lactic Acid w/Reflex 4.3 mmol/L (0.4-2.0)
[2024-06-26] MEDS ORDERED: cefTRIAXone 1GM/50ML D5W 50 ML IV SCH (09:00)
[2024-06-26 09:16] VITALS: PULSE 90; RESP 19; O2SAT 100
[2024-06-26 09:57] LABS: Basophils # (auto) 0.1 10 ^3/uL (0-0.2); Basophils % (auto) 0.4 % (0.0-2.0); Eosinophils # (auto) 0 10 ^3/uL (0-0.8); Hematocrit 28.8 % (36.0-46.0); Hemoglobin 8.8 g/dL (12.2-16.2); Monocytes % (auto) 3.7 % (0.0-12.0); Nucleated Red Blood Cells % 0.1 %
[2024-06-26 09:59] LABS: Eosinophils % (auto) 0.2 % (0.0-7.0); Lymphocytes # (auto) 1.2 10 ^3/uL (0.4-5.4); Lymphocytes % (auto) 6.6 % (10.0-50.0); Mean Corpuscular Hgb Conc. 30.6 g/dL (32.0-36.0); Monocytes # (auto) 0.7 10 ^3/uL (0-1.3); Neutrophils # (auto) 15.8 10 ^3/uL (1.6-8.6); Neutrophils % (auto) 89.1 % (37.0-80.0); Platelet Count (auto) 170 10^3/uL (140-450); Red Blood Cells 3.03 10^6/uL (4.0-5.20); Red Cell Distribution Width 15.9 % (11.8-14.3); White Blood Cell 17.7 10^3/uL (4.4-10.8)
[2024-06-26] MEDS: PIPERACILLIN-TAZOB 3.375GM 100 ML IV SCH (10:00)
--- NOTE | 2024-06-26 10:55 | DVHNC2 ---
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) Indication: Hypotension, CVP monitoring, Volume resuscitation, Inability to obtain IV Room prepared for procedure: Yes Oceanography Professor performed hand hygien: Yes Maximal sterile barrier precau: Mask/Eye shield, Sterile gown, Cap, Sterlie gloves, Large sterlie drape Skin Preparation: Chlorhexidine gluconate Skin preparation completely dr: Yes Insertion site: Right, Internal jugular, Line secured Central line catheter type: [id number] dialysis Number of lumens: 3 Central line exchanged over a: No Antiseptic ointment applied to: Yes Post Assessment: Chest X-Ray Informed consent obtained: Yes Risks/benefits/alt described: Yes Date of Service: Jun 26, 2024 Billing Provider: SAMUEL CORTES MD Common Visit Codes: PROCEDURE ONLY Procedure Codes: [id number] NON-TUNNEL CV CATH JOHNATHON LINDER RESIDENT Jun 26, 2024 10:55
--- NOTE | 2024-06-26 11:22 | DVHINCON2 ---
Date of service: Jun 26, 2024 Reason for Consultation decubitus ulcer History of Present Illness History Source: Patient, RN Notes, MD Notes Exam Limitations: No limitations HPI 79 year old female presented to the Er for evaluation of generalized weakness. 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 She has a large sacral ulcer that is foul smelling and with necrotic tissue covering a large area of the sacral wound Home Meds Reported Medications Allopurinol (Allopurinol) 100 Mg Tab, 100 MG PO DAILY, MG 08/19/18 Atorvastatin Calcium (ATORVASTATIN CALCIUM) 20 Mg Tab, 1 TAB PO DAILY, #30 TAB 5 Refills 08/19/18 Ferric Citrate (Auryxia) 210 Mg Tab, 210 MG PO TID, TAB 08/19/18 Ferrous Fumarate (Iron) 18 Mg Tab, 6 MG PO DAILY, TAB 08/19/18 Insulin Isophane & Reg (Human) (Humulin 70/30 (70-30) 100 Unit/ml) 1 Units/0.01 Ml Inj, 25 UNITS SC DAILY, INJ 08/19/18 Insulin Isophane & Reg (Human) (Humulin 70/30 (70-30) 100 Unit/ml) 1 Units/0.01 Ml Inj, 50 UNITS SC DAILY, INJ 08/19/18 Carvedilol (Carvedilol) 6.25 Mg Tab, 6.25 MG PO DAILY, MG 08/19/18 Lisinopril (Lisinopril) 10 Mg Tab, 10 MG PO DAILY, TAB 08/19/18 Clonidine Hcl (CATAPRES TABLET) 0.1 Mg Tb, 0.1 MG PO BID 08/19/18 Nifedipine (Nifedipine Er) 30 Mg Tab, 1 TAB PO DAILY, #90 TAB 1 Refill 08/19/18 Past Medical History Cardiac: HTN Pulmonary: No pertinent Hx Central Nervous System: No pertinent Hx GI: No pertinent Hx Hemotology/Oncology: No pertinent Hx Hepatobiliary: No pertinent Hx Psychiatric: No pertinent Hx Musculoskeletal: No pertinent Hx Rheumotologic: No pertinent Hx Infectious Disease: No peritnent Hx ENT: No pertinent Hx Renal/: No pertinent Hx Endocrine: NIDDM Dermatology: No pertinent Hx Past Surgical History: Hysterctomy, Other (Left hip placement ) Patient Family History: Patient reports no known family medical history. Smoker: No Hx (Negative) Alocohol: None Drugs: None Lives with: Half-Way Review of Systems Constitutional: No symptom reported Ears, Nose, & Throat: No symptom reported Eyes: No symptom reported Pulmonary/Respiratory: No symptom reported Cardiovascular: No symptom reported Gastrointestinal: No symptom reported Genitourinary: No symptom reported Musculoskeletal: No symptom reported Skin: Other (sacral wound) Psychiatric: No symptom reported Endocrine: No symptom reported Hemotologic/Lymphatic: No symptom reported H&P Exam Vital Signs Vital Signs Date Time Temp Pulse Resp B/P (MAP) Pulse Ox O2 Delivery O2 Flow Rate FiO2 06/26/24 09:30 90 17 97/58 (71) 94 06/26/24 09:16 Room Air* 0 21 06/26/24 04:16 97.8 97.8 General Appeara: Well developed, Mild distress Head Exam: Normal inspection Pulmonary/Respiratory: Normal inspection Cardiovascular/Chest: Normal inspection Neuro/Mental St: Alert Skin Exam: Other (sacral wound) Labs/Xrays Labs Test 06/26/24 09:25 06/26/24 07:40 06/26/24 06:01 06/25/24 12:13 Range/Units White Blood Count 17.7 #H 4.4-10.8 10^3/uL Red Blood Count 3.03 L 4.0-5.20 10^6/uL Hemoglobin 8.8 L 12.2-16.2 g/dL Hematocrit 28.8 L 36.0-46.0 % Mean Corpuscular Volume 95.0 80.0-100.0 fL Mean Corpuscular Hemoglobin 29.0 28.0-32.0 pg Mean Corpuscular Hemoglobin Concent 30.6 L 32.0-36.0 g/dL Red Cell Distribution Width 15.9 H 11.8-14.3 % Platelet Count 170 140-450 10^3/uL Mean Platelet Volume 8.1 6.9-10.8 fL Neutrophils (%) (Auto) 89.1 H 37.0-80.0 % Lymphocytes (%) (Auto) 6.6 L 10.0-50.0 % Monocytes (%) (Auto) 3.7 0.0-12.0 % Eosinophils (%) (Auto) 0.2 0.0-7.0 % Basophils (%) (Auto) 0.4 0.0-2.0 % Neutrophils # (Auto) 15.8 H 1.6-8.6 10 ^3/uL Lymphocytes # (Auto) 1.2 0.4-5.4 10 ^3/uL Monocytes # (Auto) 0.7 0-1.3 10 ^3/uL Eosinophils # (Auto) 0 0-0.8 10 ^3/uL Basophils # (Auto) 0.1 0-0.2 10 ^3/uL Nucleated Red Blood Cells 0.1 % Lactic Acid Level 4.4 *H 0.4-2.0 mmol/L POC Glucose 228 H 70-106 mg/dl Sodium Level 132 L 136-145 mmol/L Potassium Level 2.7 L 3.5-5.1 mmol/L Chloride Level 96 L 98-107 mmol/L Carbon Dioxide Level 21 20-31 mmol/L Anion Gap 15 5-15 Blood Urea Nitrogen 59 H 9-23 mg/dL Creatinine 5.12 H 0.550-1.02 mg/dL Glomerular Filtration Rate Calc 8 >90 mL/min BUN/Creatinine Ratio 11.5 10.0-20.0 Serum Glucose 223 H 74-106 mg/dL Calcium Level 7.9 L 8.7-10.4 mg/dL Phosphorus Level 5.9 H 2.4-5.1 mg/dL Magnesium Level 1.7 1.6-2.6 mg/dL Differential Total Cells Counted 100.0 100 Neutrophils % (Manual) 81 H 37.0-80.0 Band Neutrophils % (Manual) 6 Lymphocytes % (Manual) 12 10.0-50.0 Monocytes % (Manual) 1 0-12 Eosinophils % (Manual) 0 0-7 Basophils % (Manual) 0 0.0-2.0 Metamyelocytes % (manual) 0 Myelocytes % (Manual) 0 Promyelocytes % (Manual) 0 Blast Cells % (Manual) 0 Reactive Lymphocytes 0 Platelet Estimate Adequate Large Platelets Few Polychromasia Slight Troponin I High Sensitivity 13 </=34 ng/L Assessment/Plan Plan on exam foul smell decubitus ulcer, necrotic tissue Ct: 1. Soft tissue defect in the midline and right gluteal soft tissues relating to decubitus ulcer. There is subcutaneous emphysema tracking from the ulcer into the gluteal tissues bilaterally. There is also air tracking into the right posterior peritoneal region. There is no discrete fluid collection to suggest abscess. Evaluation of the regional osseous structures limited secondary 2 motion and streak artifact. case discussed with Dr. Woodward, debridement of necrotic tissue tomorrow am , patient will need higher level of care for wound coverage Plan discussed with: Patient, Other (Dr. Woodward ) Visit Coding Surgery Date of Service if different f: Jun 26, 2024 Billing Provider: ARON WOODWARD MD Surgery Visit Codes: [id number] - INP CONSULT <80 MIN NANDINI PEREZ IV RN Jun 26, 2024 11:22
--- NOTE | 2024-06-26 11:25 | DVH ---
CHEST RADIOGRAPH Indication: s/p central line placement Technique: Single frontal view of the chest was obtained Comparison: XY CHEST PORTABLE on DOS: 06/25/24 FINDINGS: Lines and Tubes: Rigth CVC tip in svc Lungs: No focal consolidation. Pleura: No effusion. No pneumothorax. Cardiomediastinal contours: Unremarkable Bones: No acute osseous abnormality. IMPRESSION: No acute cardiopulmonary disease.
[2024-06-26] MEDS: HYDROcodone-ACET 5/325MG TAB PO ONE (12:00)
[2024-06-26] MEDS: HYDROcodone-ACET 5/325MG TAB PO PRN (12:01)
--- NOTE | 2024-06-26 13:09 | DVHPN2 ---
Subjective 79 year old female was admitted for weakness, decub wound, low BP, sepsis, low K+ and Mg+ Changes from previous H/P or p: Changes Objective Vitals Vital Signs Date Time Temp Pulse Resp B/P (MAP) Pulse Ox O2 Delivery O2 Flow Rate FiO2 06/26/24 11:00 90 18 112/51 (71) 99 06/26/24 09:16 Room Air* 0 21 06/26/24 04:16 97.8 97.8 Intake/Output Intake and Output 06/26/24 07:00 Intake Total 200 ml Balance 200 ml Intake IV Total 200 ml General Appearance: Alert, Oriented X3, Cooperative Lungs: Clear to auscultation, Normal air movement Cardiovascular: Regular rate, Normal S1, Normal S2, No murmurs Abdomen: Normal bowel sounds, Soft, No tenderness Extremities: No edema Medications Current Medications Medications Dose Ordered Sig/Antonio Route Start Time Stop Time Status Last Admin Dose Admin Carbidopa/Levodopa 1 tab TID PO 06/25/24 22:00 06/26/24 06:00 1 TAB Atorvastatin Calcium 20 mg HS PO 06/25/24 22:00 Diagnostic Test (Pha) 1 strip ACHS 06/25/24 22:00 06/26/24 11:37 1 STRIP Insulin Human Regular ACHS SC 06/25/24 22:00 06/26/24 11:42 4 UNITS Dextrose 50 ml UD PRN IV 06/25/24 18:45 Acetaminophen/ Hydrocodone Bitart 1 tab Q4HP PRN PO 06/25/24 18:45 06/26/24 12:01 1 TAB Ondansetron HCl 4 mg Q4HP PRN IV 06/25/24 18:45 Acetaminophen 650 mg Q6HP PRN PO 06/25/24 18:45 Clindamycin Phosphate 50 ml @ 50 mls/hr Q8HR IV 06/26/24 06:00 Hold 06/26/24 09:30 50 MLS/HR Norepinephrine Bitartrate 250 ml @ 3.75 mls/hr Q24H IV 06/26/24 06:30 Piperacillin Sod/ Tazobactam Sod 100 ml @ 25 mls/hr Q12HR IV 06/26/24 10:00 06/26/24 10:00 25 MLS/HR Clindamycin Phosphate 50 ml @ 50 mls/hr Q8HR IV 06/26/24 14:00 Vancomycin HCl 0 ml @ 0 mls/hr UD IV 06/26/24 07:00 Laboratory Results Laboratory Tests 06/26/24 06:01 06/26/24 09:25 Chemistry Test 06/26/24 06:01 Calcium Level 7.9 mg/dL (8.7-10.4) L Magnesium Level 1.7 mg/dL (1.6-2.6) Phosphorus Level 5.9 mg/dL (2.4-5.1) H Assessment/Plan Assessment/Plan Sepsis with septic shock Infected decub ulcer Debility Hypokalemia Hypomagnesemia ESRD DM2 HTN Dementia Parkinson's D. Anemia of CKD Leukocytosis due to sepsis PLAN: IV antibiotics: Zosyn and Vanco Surgical consult I&D tomorrow Telemetry Replace K+ & Mg Sinemet Start diet NPO after midnight Plan discussed with: Patient, Other Date of Service: Jun 26, 2024 Billing Provider: JEAN-PIERRE CARDENAS MD Common Visit Codes: NOT BILLABLE JEAN-PIERRE CARDENAS MD Jun 26, 2024 13:09
[2024-06-26] MEDS: POTASSIUM EFFERVESENT TAB 25 MEQ PO ONE (13:34)
[2024-06-26] MEDS: NOREPINEPHRINE 8 MG/250ML KIT 250 ML IV ONE (13:35)
[2024-06-26] MEDS: MAGNESIUM SULFATE 1GM/100ML 100 ML IV SCH (13:42)
[2024-06-26] MEDS ORDERED: CLINDAMYCIN 300MG IV 50 ML IV SCH (14:00)
[2024-06-26 14:02] LABS: Urine Bacteria MANY /hpf (None Seen); Urine Blood 3+ /uL (Negative); Urine Budding Yeast MODERATE /hpf (None Seen); Urine Clarity Ex.Turbid (Clear); Urine Color Light-Orange (Yellow); Urine Protein, UAD 3+ (Negative); Urine Specific Gravity 1.016 (1.001-1.035); Urine Squamous Epithelial Cell MANY /hpf (<5); Urine Urobilinogen Normal (Negative); Urine WBC 165 /hpf (0 - 5); Urine WBC Clumps PRESENT /hpf (None Seen); Urine pH 6.5 (5.0-9.0)
[2024-06-26 15:24] LABS: INR 1.25 (0.9-1.15)
[2024-06-26 19:30] VITALS: PULSE 80; RESP 14; O2SAT 100
[2024-06-27] VITALS (31 sets, daily range): BP systolic 89–168; BP diastolic 36–77; PULSE 78–125; RESP 13–21; TEMP 97.4–98.2; O2SAT 96–100
[2024-06-27 06:07] LABS: Eosinophils # (auto) 0 10 ^3/uL (0-0.8); Monocytes # (auto) 0.4 10 ^3/uL (0-1.3); Red Cell Distribution Width 15.7 % (11.8-14.3)
[2024-06-27 06:10] LABS: Basophils # (auto) 0 10 ^3/uL (0-0.2); Basophils % (auto) 0.2 % (0.0-2.0); Hematocrit 21.1 % (36.0-46.0); Lymphocytes # (auto) 0.9 10 ^3/uL (0.4-5.4); Lymphocytes % (auto) 5.6 % (10.0-50.0); Mean Corpuscular Hemoglobin 29.4 pg (28.0-32.0); Mean Corpuscular Hgb Conc. 31.9 g/dL (32.0-36.0); Mean Corpuscular Volume 92.1 fL (80.0-100.0); Monocytes % (auto) 2.2 % (0.0-12.0); Platelet Count (auto) 144 10^3/uL (140-450); Red Blood Cells 2.29 10^6/uL (4.0-5.20); White Blood Cell 16.3 10^3/uL (4.4-10.8)
[2024-06-27 06:11] LABS: Anion Gap 14 (5-15); Aspartate Aminotransferase 22 U/L (13-40); BUN/Creatinine Ratio 11.4 (10.0-20.0)
[2024-06-27 06:25] LABS: Alanine Aminotransferase < 9 U/L (7-40); Alkaline Phosphatase 247 U/L (46-116); Bilirubin, Total 0.2 mg/dL (0.2-1.0); Blood Urea Nitrogen 56 mg/dL (9-23); Calcium 8.1 mg/dL (8.7-10.4); Carbon Dioxide 19 mmol/L (20-31); Chloride 95 mmol/L (98-107); Glucose 118 mg/dL (74-106); Potassium 3.1 mmol/L (3.5-5.1); Sodium 128 mmol/L (136-145); Total Protein 4.5 g/dL (5.7-8.2)
[2024-06-27 06:29] LABS: Albumin 2.3 g/dL (3.2-4.8)
[2024-06-27 06:51] LABS: Hemoglobin 6.7 g/dL (12.2-16.2)
[2024-06-27] MEDS: PANTOPRAZOLE 40 MG TAB PO SCH (07:46)
--- NOTE | 2024-06-27 10:50 | DVHPN2 ---
Progress Note Date Seen: Jun 27, 2024 Medical Necessity Reason Pt with a Central, PICC or Fol: No Objective vital signs Vital Sign Date Time Temp Pulse Resp B/P (MAP) Pulse Ox O2 Delivery O2 Flow Rate FiO2 06/27/24 10:15 97.9 98 17 115/46 97.9 06/27/24 09:00 100 06/27/24 07:00 Room Air* 0 21 Total Intake and Output 06/26/24 06/26/24 06/27/24 15:00 23:00 07:00 Intake Total 1418.75 ml 126.25 ml 100 ml Output Total 35 ml Balance 1418.75 ml 126.25 ml 65 ml medications Current Medications Medications Dose Ordered Sig/Antonio Route Start Time Stop Time Status Last Admin Dose Admin Carbidopa/Levodopa 1 tab TID PO 06/25/24 22:00 06/26/24 22:55 1 TAB Atorvastatin Calcium 20 mg HS PO 06/25/24 22:00 06/26/24 22:55 20 MG Diagnostic Test (Pha) 1 strip ACHS 06/25/24 22:00 06/27/24 07:05 1 STRIP Insulin Human Regular ACHS SC 06/25/24 22:00 06/26/24 11:42 4 UNITS Dextrose 50 ml UD PRN IV 06/25/24 18:45 Acetaminophen/ Hydrocodone Bitart 1 tab Q4HP PRN PO 06/25/24 18:45 06/26/24 12:01 1 TAB Ondansetron HCl 4 mg Q4HP PRN IV 06/25/24 18:45 Acetaminophen 650 mg Q6HP PRN PO 06/25/24 18:45 Piperacillin Sod/ Tazobactam Sod 100 ml @ 25 mls/hr Q12HR IV 06/26/24 10:00 06/27/24 10:10 25 MLS/HR Vancomycin HCl 0 ml @ 0 mls/hr UD IV 06/26/24 07:00 Pantoprazole Sodium 40 mg DAILY@0600 PO 06/27/24 06:00 Norepinephrine Bitartrate 250 ml @ 3.75 mls/hr Q24H IV 06/26/24 13:30 06/26/24 13:41 3.75 MLS/HR laboratory and microbiology Laboratory Tests 06/27/24 05:35 Test 06/27/24 05:35 Range/Units Serum Glucose 118 H 74-106 mg/dL Problem List/Assessment/Plan Problem List/Assessment/Plan 06/27/24 PATIENT WITH LARGE SACRAL WOUND NEEDS DEBRIDEMENT AND ULTIMATELY WILL NEED WOUND COVERAGE BY PLASTIC SURGEON, SHOULD HAVE A COLOSTOMY HOWEVER 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 DEBRIDEMENT TODAY WAS CANCELLED DUE TO ANESTHESIA'S CONCERN ABOUT NEED FOR DIALYSIS,TRANSFUSION AND CORRECTION OF ELECTROLYTE IMBALANCE, PLEASE NOTIFY ME WHEN PATIENT IS MEDICALLY STABLE TO UNDERGO DEBRIDEMENT Plan discussed with: Patient, Daughter ARON LUNSFORD MD Jun 27, 2024 10:50
[2024-06-27] MEDS: NOREPINEPHRINE 8 MG/250ML KIT 250 ML IV SCH (15:15)
[2024-06-27] MEDS: NOREPINEPHRINE 8 MG/250ML KIT 250 ML IV ONE (15:16)
[2024-06-27] MEDS: VANCOMYCIN 1GM/250ML KIT 250 ML IV ONE (15:28)
[2024-06-27] MEDS: AMIODARONE BOLUS KIT 100 ML IV ONE (16:19)
[2024-06-27] MEDS: MAGNESIUM SULFATE 1GM/100ML 100 ML IV ONE (16:27)
[2024-06-27] MEDS: AMIODARONE 360mg/200mL PREMIX 200 ML IV ONE (16:34)
[2024-06-27] MEDS: POTASSIUM CHL 20MEQ/100ML 100 ML IV ONE (17:08)
--- NOTE | 2024-06-27 17:11 | DVHINCON2 ---
Date Seen: Jun 27, 2024 Referring Physician MD Lexy Reason for Consultation A-fib with RVR History of Present Illness This is a 79-year-old female who presented to the emergency room via EMS with a chief complaint of wound check. At time of assessment the patient was found ALOC and somewhat obtunded. Information obtained from records which indicate patient underwent recent left hip replacement developing a large sacral ulcer with necrotic tissue deemed to be contaminated with feces. During admission, she developed an atrial fibrillation rhythm with rapid ventricular rate prompting cardiology evaluation. There was no baseline 12 lead electrocardiogram nevertheless casting molder was reviewed showing the patient presented with a normal sinus rhythm. Baseline troponin level was negative. Significant medical history includes insulin-dependent diabetes mellitus, hypertension, Parkinson's disease, end-stage renal disease on hemodialysis, anemia and chronic disease, and dementia. Past Medical History Past medical history reviewed. No other significant than mentioned above. Past Surgical History Left hip replacement Hysterectomy Family History: Patient reports no known family medical history. Family History Unable to obtain family history at this time. Social History Unable to obtain social history at this time. Allergies: Coded Allergies: Metformin (Verified Allergy, Unknown, 02/05/23) Home Meds Reported Medications Allopurinol (Allopurinol) 100 Mg Tab, 100 MG PO DAILY, MG 08/19/18 Atorvastatin Calcium (ATORVASTATIN CALCIUM) 20 Mg Tab, 1 TAB PO DAILY, #30 TAB 5 Refills 08/19/18 Ferric Citrate (Auryxia) 210 Mg Tab, 210 MG PO TID, TAB 08/19/18 Ferrous Fumarate (Iron) 18 Mg Tab, 6 MG PO DAILY, TAB 08/19/18 Insulin Isophane & Reg (Human) (Humulin 70/30 (70-30) 100 Unit/ml) 1 Units/0.01 Ml Inj, 25 UNITS SC DAILY, INJ 08/19/18 Insulin Isophane & Reg (Human) (Humulin 70/30 (70-30) 100 Unit/ml) 1 Units/0.01 Ml Inj, 50 UNITS SC DAILY, INJ 08/19/18 Carvedilol (Carvedilol) 6.25 Mg Tab, 6.25 MG PO DAILY, MG 08/19/18 Lisinopril (Lisinopril) 10 Mg Tab, 10 MG PO DAILY, TAB 08/19/18 Clonidine Hcl (CATAPRES TABLET) 0.1 Mg Tb, 0.1 MG PO BID 08/19/18 Nifedipine (Nifedipine Er) 30 Mg Tab, 1 TAB PO DAILY, #90 TAB 1 Refill 08/19/18 Home Meds Home medications reviewed. Current Medications Current Medications Medications (Trade) Dose Ordered Sig/Antonio Route PRN Reason Start Time Stop Time Status Last Admin Pantoprazole Sodium (Protonix Tablet) 40 mg DAILY@0600 PO 06/27/24 06:00 Norepinephrine Bitartrate 250 ml @ 3.75 mls/hr Q24H IV 06/27/24 15:00 06/27/24 15:15 Review of Systems Constitutional: No symptom reported Ears, Nose, & Throat: No symptom reported Eyes: No symptom reported Neurological: No symptoms reported Pulmonary/Respiratory: No symptom reported Cardiovascular: No symptom reported Gastrointestinal: No symptom reported Genitourinary: No symptom reported Musculoskeletal: No symptom reported Skin: Large sacral ulcer Psychiatric: No symptom reported Endocrine: No symptom reported Hemotologic/Lymphatic: No symptom reported Vital Signs Vital Signs Date Time Temp Pulse Resp B/P (MAP) Pulse Ox O2 Delivery O2 Flow Rate FiO2 06/27/24 16:00 129 06/27/24 15:45 14 112/57 (75) 100 06/27/24 14:50 97.7 97.7 06/27/24 07:00 Room Air* 0 21 Physical Exam General Appearance: ALOC. Obtunded. Moderate acute distress Head Exam: Normal inspection Neck Exam: Normal inspection. Normal alignment Pulmonary/Respiratory: Clear bilateral breath sounds Cardiovascular/Chest: Irregularly irregular rate and rhythm. A-Fib with RVR. No murmurs. Peripheral Pulses: 2+ Radial (R). 2+ Radial (L). 2+ Pedal (R). 2+ Pedal (L) Abdominal Exam: Normal bowel sounds. Soft. Ankle Exam: Positive ankle edema, 2+ Lower extremities: Positive lower extremity edema Neuro/Mental Status: A&O x4. Coherent Thoughts/Psych: ALOC. Obtunded Appearance:Moderate acute distress Skin Exam: See wound care pictures/documentation Labs/Diagnostic Data Labs Test 06/27/24 11:24 06/27/24 05:35 06/26/24 14:44 06/26/24 13:20 Range/Units POC Glucose 133 H 70-106 mg/dl White Blood Count 16.3 H 4.4-10.8 10^3/uL Red Blood Count 2.29 L 4.0-5.20 10^6/uL Hemoglobin 6.7 #*L 12.2-16.2 g/dL Hematocrit 21.1 #L 36.0-46.0 % Mean Corpuscular Volume 92.1 80.0-100.0 fL Mean Corpuscular Hemoglobin 29.4 28.0-32.0 pg Mean Corpuscular Hemoglobin Concent 31.9 L 32.0-36.0 g/dL Red Cell Distribution Width 15.7 H 11.8-14.3 % Platelet Count 144 140-450 10^3/uL Mean Platelet Volume 7.8 6.9-10.8 fL Neutrophils (%) (Auto) 92.0 H 37.0-80.0 % Lymphocytes (%) (Auto) 5.6 L 10.0-50.0 % Monocytes (%) (Auto) 2.2 0.0-12.0 % Eosinophils (%) (Auto) 0.0 0.0-7.0 % Basophils (%) (Auto) 0.2 0.0-2.0 % Neutrophils # (Auto) 15.0 H 1.6-8.6 10 ^3/uL Lymphocytes # (Auto) 0.9 0.4-5.4 10 ^3/uL Monocytes # (Auto) 0.4 0-1.3 10 ^3/uL Eosinophils # (Auto) 0 0-0.8 10 ^3/uL Basophils # (Auto) 0 0-0.2 10 ^3/uL Nucleated Red Blood Cells 0.0 % Sodium Level 128 L 136-145 mmol/L Potassium Level 3.1 L 3.5-5.1 mmol/L Chloride Level 95 L 98-107 mmol/L Carbon Dioxide Level 19 L 20-31 mmol/L Anion Gap 14 5-15 Blood Urea Nitrogen 56 H 9-23 mg/dL Creatinine 4.92 H 0.550-1.02 mg/dL Glomerular Filtration Rate Calc 8 >90 mL/min BUN/Creatinine Ratio 11.4 10.0-20.0 Serum Glucose 118 H 74-106 mg/dL Calcium Level 8.1 L 8.7-10.4 mg/dL Magnesium Level 2.0 1.6-2.6 mg/dL Total Bilirubin 0.2 0.2-1.0 mg/dL Aspartate Amino Transferase (AST) 22 13-40 U/L Alanine Aminotransferase (ALT) < 9 7-40 U/L Alkaline Phosphatase 247 H 46-116 U/L Total Protein 4.5 L 5.7-8.2 g/dL Albumin 2.3 L 3.2-4.8 g/dL Random Vancomycin Level 16.5 H 5-10 ug/mL Prothrombin Time 13.0 H 9.3-11.8 sec Prothrombin Time INR 1.25 H 0.9-1.15 Activated Partial Thromboplast Time 31.0 24.5-34.5 SEC Urine Color Light-orange Yellow Urine Clarity Ex.turbid Clear Urine pH 6.5 5.0-9.0 Urine Specific [place] 1.016 1.001-1.035 Urine Protein 3+ H Negative Urine Ketones Negative Negative Urine Blood 3+ H Negative /uL Urine Nitrite Negative Negative Urine Bilirubin Negative Negative Urine Urobilinogen Normal Negative mg/dL Urine Leukocyte Esterase 3+ Negative /uL Urine RBC 58 0 - 4 /hpf Urine WBC 165 0 - 5 /hpf Urine WBC Clumps Present None Seen /hpf Urine Squamous Epithelial Cells Many <5 /hpf Urine Bacteria Many H None Seen /hpf Urine Yeast (Budding) Moderate None Seen /hpf Urine Glucose Normal Normal mg/dL Test 06/26/24 09:25 06/26/24 06:01 06/25/24 12:13 Range/Units Lactic Acid Level 4.4 *H 0.4-2.0 mmol/L Phosphorus Level 5.9 H 2.4-5.1 mg/dL Differential Total Cells Counted 100.0 100 Neutrophils % (Manual) 81 H 37.0-80.0 Band Neutrophils % (Manual) 6 Lymphocytes % (Manual) 12 10.0-50.0 Monocytes % (Manual) 1 0-12 Eosinophils % (Manual) 0 0-7 Basophils % (Manual) 0 0.0-2.0 Metamyelocytes % (manual) 0 Myelocytes % (Manual) 0 Promyelocytes % (Manual) 0 Blast Cells % (Manual) 0 Reactive Lymphocytes 0 Platelet Estimate Adequate Large Platelets Few Polychromasia Slight Troponin I High Sensitivity 13 </=34 ng/L Microbiology Date/Time Source Procedure Growth Status 06/26/24 13:40 Sacrum Gram Stain - Final Resulted 06/26/24 13:40 Sacrum Wound Culture - Preliminary Resulted 06/25/24 20:50 Blood Blood Culture - Preliminary NO GROWTH AFTER 24 HOURS OF INCUBATION. Resulted Assessment Hypovolemic/septic shock with large sacral/necrotic wound Atrial fibrillation with rapid ventricular rate, newly diagnosed Severe hypokalemia & hypomagnesemia Acute on chronic anemia Parkinson's disease ESRD on HD Dementia Plan/Recommendation (Dr. Cameron) New onset atrial fibrillation with rapid ventricular rate likely secondary to hemodynamic derangement including hypovolemia including decreased H&H levels, electrolyte imbalance, and worsening sepsis. We will continue further cardiac evaluation with a transthoracic echocardiogram and TSH level. The patient has been initiated on an amiodarone drip per pharmacy protocol. Continue Levophed drip and albumin infusion for hemodynamic support. Avoid AC/NOAC therapy given decreased H&H with current blood transfusion ongoing. Obtain FOBT sample to rule out GI bleed. Appears to be overloaded, agree with hemodialysis treatments. Replete electrolytes as necessary. Obtain a bilateral lower extremity venous US. ABX therapy per primary care team. Surgical team recommendations. Thank you for allowing us to participate in this patient's care. Please call if you have any questions or concerns. Critical care time: 35 min. This medical document was created using an electronic medical record system with voice recognition software and computerized dictation system. Although this document has been carefully reviewed, there might still be some phonetic and typographical errors. Occasional wrong-word or ``sound-alike substitutions may have occurred due to the inherent limitations of voice recognition software. These areas are purely typographical due to imperfections of the software programs and do not reflect any compromise in the patient's medical care. Please read the chart carefully and recognize, using context, where these substitutions have occurred. Plan discussed with: Other NYHA Physical activity limitations: NA Date of Service: Jun 27, 2024 Billing Provider: IDALIA HOUSE Cardiology Common Codes: 81824-[id number] CARE 30-74 MIN IDALIA HOUSE Jun 27, 2024 17:11
[2024-06-27] MEDS: NOREPINEPHRINE BITARTRATE 32 MG in SODIUM CHL 0.9% 218 ML IV SCH (18:00)
[2024-06-27] MEDS: ALBUMIN 25% 100 ML IV SCH (18:38)
--- NOTE | 2024-06-27 18:52 | DVH ---
CLINICAL HISTORY: Edema rule out DVT TECHNIQUE: Color and duplex doppler imaging of the bilateral lower extremity veins was performed. Ves gali compression if possible was also performed. WID: COMPARISON: None FINDINGS: Right and left external iliac veins: Normal flow and phasicity. Right Lower Extremity: Right common femoral vein: Normal compressibility and flow. Right femoral vein: Normal compressibility and flow. Right popliteal vein: Normal compressibility and flow. Proximal calf veins are normally compressible. Mild subcutaneous edema in the right calf. Left Lower Extremity: Left common femoral vein: Normal compressibility and flow. Left femoral vein: Linear Intermediate echogenicity thrombus is seen within the proximal left superfi cial femoral vein, nonocclusive. Remainder of the left superficial femoral vein is patent and gil sible. Left popliteal vein: Normal compressibility and flow. Proximal calf veins are normally compressible. Mild subcutaneous edema in the left calf. IMPRESSION: 1. 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 2. NO SONOGRAPHIC EVIDENCE FOR DEEP VENOUS THROMBOSIS IN THE right LOWER EXTREMITY VEINS.
[2024-06-27 19:55] LABS: Hematocrit 40.4 % (36.0-46.0); Hemoglobin 12.2 g/dL (12.2-16.2)
[2024-06-27] MEDS: AMIODARONE 360mg/200mL PREMIX 200 ML IV SCH (22:00)
[2024-06-28] VITALS (33 sets, daily range): BP systolic 96–145; BP diastolic 44–82; PULSE 71–92; RESP 13–24; TEMP 97.3–97.6; O2SAT 97–100
[2024-06-28 05:35] LABS: Anion Gap 16 (5-15); Aspartate Aminotransferase 22 U/L (13-40); BUN/Creatinine Ratio 11.9 (10.0-20.0); Magnesium 2.3 mg/dL (1.6-2.6)
[2024-06-28 05:38] LABS: Alanine Aminotransferase < 9 U/L (7-40); Albumin 2.8 g/dL (3.2-4.8); Alkaline Phosphatase 256 U/L (46-116); Bilirubin, Total 0.2 mg/dL (0.2-1.0); Blood Urea Nitrogen 59 mg/dL (9-23); Calcium 8.4 mg/dL (8.7-10.4); Carbon Dioxide 17 mmol/L (20-31); Chloride 94 mmol/L (98-107); Glucose 153 mg/dL (74-106); Potassium 3.4 mmol/L (3.5-5.1); Sodium 127 mmol/L (136-145); Total Protein 4.8 g/dL (5.7-8.2)
[2024-06-28 06:10] LABS: Basophils # (auto) 0.1 10 ^3/uL (0-0.2); Basophils % (auto) 0.6 % (0.0-2.0); Eosinophils # (auto) 0 10 ^3/uL (0-0.8); Hematocrit 27.5 % (36.0-46.0); Lymphocytes # (auto) 0.8 10 ^3/uL (0.4-5.4); Lymphocytes % (auto) 5.2 % (10.0-50.0); Mean Corpuscular Hemoglobin 29.4 pg (28.0-32.0); Mean Corpuscular Hgb Conc. 32.6 g/dL (32.0-36.0); Mean Corpuscular Volume 90.1 fL (80.0-100.0); Monocytes # (auto) 0.3 10 ^3/uL (0-1.3); Monocytes % (auto) 2.1 % (0.0-12.0); Neutrophils % (auto) 92.1 % (37.0-80.0); Platelet Count (auto) 102 10^3/uL (140-450); Red Blood Cells 3.05 10^6/uL (4.0-5.20); Red Cell Distribution Width 15.4 % (11.8-14.3); White Blood Cell 16.2 10^3/uL (4.4-10.8)
[2024-06-28] MEDS: MAGNESIUM SULFATE 1GM/100ML 100 ML IV ONE (06:25)
[2024-06-28] MEDS: POTASSIUM CHL 20MEQ/100ML 100 ML IV SCH (06:25)
--- NOTE | 2024-06-28 10:50 | DVHPN2 ---
Subjective Off Levophed drip On amiodarone drip Changes from previous H/P or p: Changes Objective Vitals Vital Signs Date Time Temp Pulse Resp B/P (MAP) Pulse Ox O2 Delivery O2 Flow Rate FiO2 06/28/24 09:30 83 20 120/45 (70) 98 06/28/24 07:30 Room Air* 0 21 06/28/24 07:30 97.3 97.3 Intake/Output Intake and Output 06/28/24 07:00 Intake Total 2603.684 ml Output Total 35 ml Balance 2568.684 ml Intake Oral 20 ml IV Total 1383.684 ml Blood Product 1200 ml Output Urine Total 35 ml General Appearance: Alert, Oriented X3, Cooperative Lungs: Clear to auscultation, Normal air movement Cardiovascular: Regular rate, Normal S1, Normal S2, No murmurs Abdomen: Normal bowel sounds, Soft, No tenderness Extremities: No edema Medications Current Medications Medications Dose Ordered Sig/Antonio Route Start Time Stop Time Status Last Admin Dose Admin Carbidopa/Levodopa 1 tab TID PO 06/25/24 22:00 06/28/24 05:12 1 TAB Atorvastatin Calcium 20 mg HS PO 06/25/24 22:00 06/27/24 21:59 20 MG Diagnostic Test (Pha) 1 strip ACHS 06/25/24 22:00 06/28/24 05:12 1 STRIP Insulin Human Regular ACHS SC 06/25/24 22:00 06/28/24 05:18 2 UNITS Dextrose 50 ml UD PRN IV 06/25/24 18:45 Acetaminophen/ Hydrocodone Bitart 1 tab Q4HP PRN PO 06/25/24 18:45 06/27/24 13:25 1 TAB Ondansetron HCl 4 mg Q4HP PRN IV 06/25/24 18:45 Acetaminophen 650 mg Q6HP PRN PO 06/25/24 18:45 Piperacillin Sod/ Tazobactam Sod 100 ml @ 25 mls/hr Q12HR IV 06/26/24 10:00 06/27/24 21:59 25 MLS/HR Vancomycin HCl 0 ml @ 0 mls/hr UD IV 06/26/24 07:00 Pantoprazole Sodium 40 mg DAILY@0600 PO 06/27/24 06:00 06/28/24 05:12 40 MG Norepinephrine Bitartrate 32 mg/ Sodium Chloride 250 ml @ 0.938 mls/ hr Q24H IV 06/27/24 17:00 06/27/24 18:00 2.813 MLS/HR Laboratory Results Laboratory Tests 06/28/24 05:04 Chemistry Test 06/28/24 05:04 Albumin 2.8 g/dL (3.2-4.8) L Calcium Level 8.4 mg/dL (8.7-10.4) L Magnesium Level 2.3 mg/dL (1.6-2.6) Total Protein 4.8 g/dL (5.7-8.2) L LFT Test 06/28/24 05:04 Alanine Aminotransferase (ALT) < 9 U/L (7-40) Alkaline Phosphatase 256 U/L (46-116) H Aspartate Amino Transferase (AST) 22 U/L (13-40) Total Bilirubin 0.2 mg/dL (0.2-1.0) Urinalysis Test 06/26/24 13:20 Urine Color Light-orange (Yellow) Urine Clarity Ex.turbid (Clear) Urine pH 6.5 (5.0-9.0) Urine Specific [place] 1.016 (1.001-1.035) Urine Protein 3+ (Negative) H Urine Ketones Negative (Negative) Urine Blood 3+ /uL (Negative) H Urine Nitrite Negative (Negative) Urine Bilirubin Negative (Negative) Urine Urobilinogen Normal mg/dL (Negative) Urine Leukocyte Esterase 3+ /uL (Negative) Urine RBC 58 /hpf (0 - 4) Urine WBC 165 /hpf (0 - 5) Urine WBC Clumps Present /hpf (None Seen) Urine Squamous Epithelial Cells Many /hpf (<5) Urine Bacteria Many /hpf (None Seen) H Urine Yeast (Budding) Moderate /hpf (None Seen) Urine Glucose Normal mg/dL (Normal) Microbiology Microbiology Date/Time Source Procedure Growth Status 06/26/24 13:40 Sacrum Gram Stain - Final Resulted 06/26/24 13:40 Sacrum Wound Culture - Preliminary Resulted 06/25/24 20:50 Blood Blood Culture - Preliminary NO GROWTH AFTER 48 HOURS OF INCUBATION. Resulted Assessment/Plan Assessment/Plan Sepsis with septic shock Infected decub ulcer Debility Hypokalemia Hypomagnesemia ESRD DM2 HTN Dementia Parkinson's D. Anemia of CKD Leukocytosis due to sepsis PLAN: IV antibiotics: Zosyn and Vanco Surgical consult I&D tomorrow Telemetry Replace K+ & Mg Sinemet Start diet NPO after midnight 06/28/24: Wound care Downgrade to Tele IV antibiotics Change amiodarone to po DC Levophed PD per nephrology: Patient gets PD by Dr. Sae Braswell, talked Dr. Olguin, he is covering for him and will give PD orders DNR Discussed with Dr. Woodward, she is not a candidate for surgery, she would need an extensive surgery with possible colostomy Family declines aggressive treatments, Discussed with daughter and granddaughter at the bedside, DNR, comfort Tx They are interested in hospice at home Consult Hospice Plan discussed with: Daughter My Orders Orders - JEAN-PIERRE CARDENAS MD Procedure Category Date Status Time Consistent DIET 06/27/24 Transmitted Carb(Ccho)Diabetes Lunch Code Status CODE 06/27/24 Transmitted 13:51 * Cardiology Consult CONS 06/27/24 Transmitted 15:56 Date of Service: Jun 28, 2024 Billing Provider: JEAN-PIERRE CARDENAS MD Common Visit Codes: NOT BILLABLE JEAN-PIERRE CARDENAS MD Jun 28, 2024 10:50
[2024-06-28] MEDS: AMIODARONE HCL 200 MG TAB PO ONE (11:17)
--- NOTE | 2024-06-28 13:55 | DVHSR ---
APPROVED REPORT EXAM: Two-dimensional and M-mode echocardiogram with Doppler and color Doppler. Blood Pressure: 112/57 mmHg INDICATION New onset afib RISK FACTORS Height: 70, Weight: 119 DIMENSIONS LVDd (3.8-5.7cm)LA (2D)4.0 (1.9-4.0cm)Aortic Root (2.0-3.7cm) EF (%) 52.0 (55-70%)Rt. Atrium4.6 (1.9-4.0cm)Asc. Aorta cm Mitral Valve MitralMitral Stenosis E/A ratio0.02D MVAcm2 Aortic Valve Aortic ValveAortic Stenosis V11.17m/Sammi Mean GR.11mmHg V22.16m/Sammi Peak GR.19mmHg Tricuspid Valve TR Velocity2.51m/s [id number] Other Information Technically limited study due to body habitus, patient position. Patient unable to to follow directi ons. Limited due to high heart rate. Conclusion tachycardia during study LVEF > 60% by visual estimate RV Enlarged, jeyson lfunction left atirum enlarged very limited study calcific aortic valve, not well visualized
[2024-06-28] MEDS: VANCOMYCIN 1GM/250ML KIT 250 ML IV ONE (15:35)
--- NOTE | 2024-06-28 21:16 | DVHINCON2 ---
Date of service: Jun 28, 2024 Referring Physician Vijay Pugh MD Reason for Consultation ESRD management of dialysis History of Present Illness Damián Flores is a 79-year-old F with a Past Medical History pertinent for insulin-dependent DM, Hypertension, Parkinson's disease, ESRD on PD and Anemia of CKD who presented to the hospital with a chief complaint of wound check. Patient was found ALOC and somewhat obtunded. Patient recently underwent left hip replacement developing a large sacral ulcer with necrotic tissue deemed to be contaminated with feces. During admission, patient developed an atrial fibrillation rhythm with rapid ventricular rate. Baseline troponin level was negative. Patient was admitted for weakness, decub wound, hypotension, sepsis. Off Levophed and Amiodarone drips this morning. Downgraded to telemetry floor. Patient is not a surgical candidate per Dr. Woodward, as patient would need extensive surgery with possible colostomy. Patient's family is declining aggressive treatments and are interested in Hospice at home. Patient is under my care outpatient for ESRD and dialysis management. I was asked to consult. Allergies: Coded Allergies: Metformin (Verified Allergy, Unknown, 02/05/23) Home Meds Reported Medications Allopurinol (Allopurinol) 100 Mg Tab, 100 MG PO DAILY, MG 08/19/18 Atorvastatin Calcium (ATORVASTATIN CALCIUM) 20 Mg Tab, 1 TAB PO DAILY, #30 TAB 5 Refills 08/19/18 Ferric Citrate (Auryxia) 210 Mg Tab, 210 MG PO TID, TAB 08/19/18 Ferrous Fumarate (Iron) 18 Mg Tab, 6 MG PO DAILY, TAB 08/19/18 Insulin Isophane & Reg (Human) (Humulin 70/30 (70-30) 100 Unit/ml) 1 Units/0.01 Ml Inj, 25 UNITS SC DAILY, INJ 08/19/18 Insulin Isophane & Reg (Human) (Humulin 70/30 (70-30) 100 Unit/ml) 1 Units/0.01 Ml Inj, 50 UNITS SC DAILY, INJ 08/19/18 Carvedilol (Carvedilol) 6.25 Mg Tab, 6.25 MG PO DAILY, MG 08/19/18 Lisinopril (Lisinopril) 10 Mg Tab, 10 MG PO DAILY, TAB 08/19/18 Clonidine Hcl (CATAPRES TABLET) 0.1 Mg Tb, 0.1 MG PO BID 08/19/18 Nifedipine (Nifedipine Er) 30 Mg Tab, 1 TAB PO DAILY, #90 TAB 1 Refill 08/19/18 Current Medications Current Medications Medications (Trade) Dose Ordered Sig/Antonio Route PRN Reason Start Time Stop Time Status Last Admin Potassium Chloride 100 ml @ 50 mls/hr Q2H IV 06/28/24 06:30 06/28/24 10:29 DC 06/28/24 10:00 Amiodarone HCl (Cordarone Tablet) 200 mg Q12HR PO 06/28/24 22:00 Family History: Patient reports no known family medical history. Review of Systems Review of Systems ROS unable to be performed due to change in mental status. H&P Exam Vital Signs/I&O Vital Sign Date Time Temp Pulse Resp B/P (MAP) Pulse Ox O2 Delivery O2 Flow Rate FiO2 06/28/24 19:30 97.4 76 14 117/53 (74) 100 97.4 06/28/24 19:30 Room Air* 0 21 Intake and Output 06/27/24 06/28/24 19:00 07:00 Intake Total 1878.643 ml 725.041 ml Output Total 0 ml 35 ml Balance 1878.643 ml 690.041 ml Intake Oral 20 ml IV Total 658.643 ml 725.041 ml Blood Product 1200 ml Output Urine Total 0 ml 35 ml Physical Exam Vitals and nursing notes reviewed. General Appearance: ALOC. Obtunded. Moderate acute distress Head Exam: Normal inspection Neck Exam: Normal inspection. Normal alignment Pulmonary/Respiratory: Clear bilateral breath sounds Cardiovascular/Chest: Irregularly irregular rate and rhythm. No murmurs. Abdominal Exam: Normal bowel sounds. Soft. Lower extremities: Positive lower extremity edema Neuro/Mental Status: ALOC. Obtunded Skin Exam: See wound care pictures/documentation Labs/Diagnostic Data Labs/Diagnostic Data Laboratory Tests Test 06/28/24 05:15 06/28/24 05:04 06/27/24 22:05 06/27/24 19:26 Range/Units POC Glucose 156 H 211 H 70-106 mg/dl White Blood Count 16.2 H 4.4-10.8 10^3/uL Red Blood Count 3.05 L 4.0-5.20 10^6/uL Hemoglobin 9.0 #L 12.2 # 12.2-16.2 g/dL Hematocrit 27.5 #L 40.4 # 36.0-46.0 % Mean Corpuscular Volume 90.1 80.0-100.0 fL Mean Corpuscular Hemoglobin 29.4 28.0-32.0 pg Mean Corpuscular Hemoglobin Concent 32.6 32.0-36.0 g/dL Red Cell Distribution Width 15.4 H 11.8-14.3 % Platelet Count 102 L 140-450 10^3/uL Mean Platelet Volume 7.5 6.9-10.8 fL Neutrophils (%) (Auto) 92.1 H 37.0-80.0 % Lymphocytes (%) (Auto) 5.2 L 10.0-50.0 % Monocytes (%) (Auto) 2.1 0.0-12.0 % Eosinophils (%) (Auto) 0.0 0.0-7.0 % Basophils (%) (Auto) 0.6 0.0-2.0 % Neutrophils # (Auto) 15.0 H 1.6-8.6 10 ^3/uL Lymphocytes # (Auto) 0.8 0.4-5.4 10 ^3/uL Monocytes # (Auto) 0.3 0-1.3 10 ^3/uL Eosinophils # (Auto) 0 0-0.8 10 ^3/uL Basophils # (Auto) 0.1 0-0.2 10 ^3/uL Nucleated Red Blood Cells 0.0 % Sodium Level 127 L 136-145 mmol/L Potassium Level 3.4 L 3.5-5.1 mmol/L Chloride Level 94 L 98-107 mmol/L Carbon Dioxide Level 17 L 20-31 mmol/L Anion Gap 16 H 5-15 Blood Urea Nitrogen 59 H 9-23 mg/dL Creatinine 4.97 H 0.550-1.02 mg/dL Glomerular Filtration Rate Calc 8 >90 mL/min BUN/Creatinine Ratio 11.9 10.0-20.0 Serum Glucose 153 H 74-106 mg/dL Calcium Level 8.4 L 8.7-10.4 mg/dL Magnesium Level 2.3 1.6-2.6 mg/dL Total Bilirubin 0.2 0.2-1.0 mg/dL Aspartate Amino Transferase (AST) 22 13-40 U/L Alanine Aminotransferase (ALT) < 9 7-40 U/L Alkaline Phosphatase 256 H 46-116 U/L Total Protein 4.8 L 5.7-8.2 g/dL Albumin 2.8 L 3.2-4.8 g/dL Random Vancomycin Level 14.3 H 5-10 ug/mL Test 06/27/24 17:01 06/27/24 16:58 06/27/24 11:24 06/27/24 06:17 Range/Units POC Glucose 262 H 214 H 133 H 113 H 70-106 mg/dl Test 06/27/24 05:35 06/26/24 22:52 06/26/24 18:04 06/26/24 14:44 Range/Units White Blood Count 16.3 H 4.4-10.8 10^3/uL Red Blood Count 2.29 L 4.0-5.20 10^6/uL Hemoglobin 6.7 #*L 12.2-16.2 g/dL Hematocrit 21.1 #L 36.0-46.0 % Mean Corpuscular Volume 92.1 80.0-100.0 fL Mean Corpuscular Hemoglobin 29.4 28.0-32.0 pg Mean Corpuscular Hemoglobin Concent 31.9 L 32.0-36.0 g/dL Red Cell Distribution Width 15.7 H 11.8-14.3 % Platelet Count 144 140-450 10^3/uL Mean Platelet Volume 7.8 6.9-10.8 fL Neutrophils (%) (Auto) 92.0 H 37.0-80.0 % Lymphocytes (%) (Auto) 5.6 L 10.0-50.0 % Monocytes (%) (Auto) 2.2 0.0-12.0 % Eosinophils (%) (Auto) 0.0 0.0-7.0 % Basophils (%) (Auto) 0.2 0.0-2.0 % Neutrophils # (Auto) 15.0 H 1.6-8.6 10 ^3/uL Lymphocytes # (Auto) 0.9 0.4-5.4 10 ^3/uL Monocytes # (Auto) 0.4 0-1.3 10 ^3/uL Eosinophils # (Auto) 0 0-0.8 10 ^3/uL Basophils # (Auto) 0 0-0.2 10 ^3/uL Nucleated Red Blood Cells 0.0 % Sodium Level 128 L 136-145 mmol/L Potassium Level 3.1 L 3.5-5.1 mmol/L Chloride Level 95 L 98-107 mmol/L Carbon Dioxide Level 19 L 20-31 mmol/L Anion Gap 14 5-15 Blood Urea Nitrogen 56 H 9-23 mg/dL Creatinine 4.92 H 0.550-1.02 mg/dL Glomerular Filtration Rate Calc 8 >90 mL/min BUN/Creatinine Ratio 11.4 10.0-20.0 Serum Glucose 118 H 74-106 mg/dL Calcium Level 8.1 L 8.7-10.4 mg/dL Magnesium Level 2.0 1.6-2.6 mg/dL Total Bilirubin 0.2 0.2-1.0 mg/dL Aspartate Amino Transferase (AST) 22 13-40 U/L Alanine Aminotransferase (ALT) < 9 7-40 U/L Alkaline Phosphatase 247 H 46-116 U/L B-Type Natriuretic Peptide 155.96 0-100 pg/mL Total Protein 4.5 L 5.7-8.2 g/dL Albumin 2.3 L 3.2-4.8 g/dL Thyroid Stimulating Hormone (TSH) 0.93 0.55-4.78 uIU/mL Random Vancomycin Level 16.5 H 5-10 ug/mL POC Glucose 103 104 70-106 mg/dl Prothrombin Time 13.0 H 9.3-11.8 sec Prothrombin Time INR 1.25 H 0.9-1.15 Activated Partial Thromboplast Time 31.0 24.5-34.5 SEC Test 06/26/24 13:20 06/26/24 11:36 06/26/24 09:25 06/26/24 07:40 Range/Units Urine Color Light-orange Yellow Urine Clarity Ex.turbid Clear Urine pH 6.5 5.0-9.0 Urine Specific [place] 1.016 1.001-1.035 Urine Protein 3+ H Negative Urine Ketones Negative Negative Urine Blood 3+ H Negative /uL Urine Nitrite Negative Negative Urine Bilirubin Negative Negative Urine Urobilinogen Normal Negative mg/dL Urine Leukocyte Esterase 3+ Negative /uL Urine RBC 58 0 - 4 /hpf Urine WBC 165 0 - 5 /hpf Urine WBC Clumps Present None Seen /hpf Urine Squamous Epithelial Cells Many <5 /hpf Urine Bacteria Many H None Seen /hpf Urine Yeast (Budding) Moderate None Seen /hpf Urine Glucose Normal Normal mg/dL POC Glucose 215 H 228 H 70-106 mg/dl White Blood Count 17.7 #H 4.4-10.8 10^3/uL Red Blood Count 3.03 L 4.0-5.20 10^6/uL Hemoglobin 8.8 L 12.2-16.2 g/dL Hematocrit 28.8 L 36.0-46.0 % Mean Corpuscular Volume 95.0 80.0-100.0 fL Mean Corpuscular Hemoglobin 29.0 28.0-32.0 pg Mean Corpuscular Hemoglobin Concent 30.6 L 32.0-36.0 g/dL Red Cell Distribution Width 15.9 H 11.8-14.3 % Platelet Count 170 140-450 10^3/uL Mean Platelet Volume 8.1 6.9-10.8 fL Neutrophils (%) (Auto) 89.1 H 37.0-80.0 % Lymphocytes (%) (Auto) 6.6 L 10.0-50.0 % Monocytes (%) (Auto) 3.7 0.0-12.0 % Eosinophils (%) (Auto) 0.2 0.0-7.0 % Basophils (%) (Auto) 0.4 0.0-2.0 % Neutrophils # (Auto) 15.8 H 1.6-8.6 10 ^3/uL Lymphocytes # (Auto) 1.2 0.4-5.4 10 ^3/uL Monocytes # (Auto) 0.7 0-1.3 10 ^3/uL Eosinophils # (Auto) 0 0-0.8 10 ^3/uL Basophils # (Auto) 0.1 0-0.2 10 ^3/uL Nucleated Red Blood Cells 0.1 % Lactic Acid Level 4.4 *H 0.4-2.0 mmol/L Test 06/26/24 07:30 06/26/24 06:01 06/25/24 20:50 06/25/24 12:13 Range/Units Lactic Acid Level 4.3 *H 4.1 *H 5.9 *H 0.4-2.0 mmol/L Sodium Level 132 L 128 L 136-145 mmol/L Potassium Level 2.7 L 2.9 L 3.5-5.1 mmol/L Chloride Level 96 L 88 L 98-107 mmol/L Carbon Dioxide Level 21 24 20-31 mmol/L Anion Gap 15 16 H 5-15 Blood Urea Nitrogen 59 H 55 H 9-23 mg/dL Creatinine 5.12 H 5.21 H 0.550-1.02 mg/dL Glomerular Filtration Rate Calc 8 8 >90 mL/min BUN/Creatinine Ratio 11.5 10.6 10.0-20.0 Serum Glucose 223 H 397 H 74-106 mg/dL Calcium Level 7.9 L 8.3 L 8.7-10.4 mg/dL Phosphorus Level 5.9 H 2.4-5.1 mg/dL Magnesium Level 1.7 1.6-2.6 mg/dL White Blood Count 14.0 H 4.4-10.8 10^3/uL Red Blood Count 3.21 L 4.0-5.20 10^6/uL Hemoglobin 9.4 L 12.2-16.2 g/dL Hematocrit 30.2 L 36.0-46.0 % Mean Corpuscular Volume 94.1 80.0-100.0 fL Mean Corpuscular Hemoglobin 29.3 28.0-32.0 pg Mean Corpuscular Hemoglobin Concent 31.1 L 32.0-36.0 g/dL Red Cell Distribution Width 15.7 H 11.8-14.3 % Platelet Count 218 140-450 10^3/uL Mean Platelet Volume 7.8 6.9-10.8 fL Neutrophils (%) (Auto) 37.0-80.0 % Lymphocytes (%) (Auto) 10.0-50.0 % Monocytes (%) (Auto) 0.0-12.0 % Basophils (%) (Auto) 0.0-2.0 % Neutrophils # (Auto) 1.6-8.6 10 ^3/uL Lymphocytes # (Auto) 0.4-5.4 10 ^3/uL Monocytes # (Auto) 0-1.3 10 ^3/uL Differential Total Cells Counted 100.0 100 Neutrophils % (Manual) 81 H 37.0-80.0 Band Neutrophils % (Manual) 6 Lymphocytes % (Manual) 12 10.0-50.0 Monocytes % (Manual) 1 0-12 Eosinophils % (Manual) 0 0-7 Basophils % (Manual) 0 0.0-2.0 Metamyelocytes % (manual) 0 Myelocytes % (Manual) 0 Promyelocytes % (Manual) 0 Blast Cells % (Manual) 0 Reactive Lymphocytes 0 Platelet Estimate Adequate Large Platelets Few Polychromasia Slight Troponin I High Sensitivity 13 </=34 ng/L Assessment Sepsis with septic shock Infected decub ulcer Hypokalemia Hypomagnesemia ESRD on PD DM2 Hypertension Parkinson's D. Anemia of CKD Plan/Recommendation Agreement with your ongoing assessment. Continue supportive care. Cardiology and Surgery consults. IV antibiotics with Zosyn and Vancomycin. Daily lab monitoring to include renal function and electrolytes. Electrolyte replacement prn. Continue PD treatments. Patient's family has opted for comfort treatments, DNR. Interested in Hospice at home. Pain management prn. Protonix 40 mg PO daily. Additional plan as per the hospital course. Plan discussed with: Patient, Other (RN) SAMMIE GERARDO DO Jun 28, 2024 17:58
[2024-06-28] MEDS: AMIODARONE HCL 200 MG TAB PO SCH (21:50)
[2024-06-29] VITALS (7 sets, daily range): BP systolic 89–105; BP diastolic 47–71; PULSE 92–118; RESP 15–20; TEMP 97.3–97.7; O2SAT 97–99
--- NOTE | 2024-06-29 02:47 | ECG ---
[facility] Test Date: 2024-06-29 Test Time: 01:57:48 Pat Name: MIKIE MOLINA Department: ER Room: 0202 Gender: F Type Copy Examiner: : 1945 Requested By: MIRNA DOWNEY Order Number: [id number] Reading MD: Jerry Bishop Measurements Intervals [place] Rate: 130 P: 0 IN: 0 QRS: 54 QRSD: 87 T: 223 QT: 262 QTc: 385 Interpretive Statements Atrial fibrillation Ventricular premature complex Anteroseptal infarct, age indeterminate Electronically Signed On 06-29-2024 16:10:43 PST by Jerry Bishop Please click the below link to view image of tracing.
[2024-06-29] MEDS: DIGOXIN (250MCG/ML) 2 ML AMPULE IV ONE (03:26)
[2024-06-29] MEDS: AMIODARONE BOLUS KIT 100 ML IV ONE (04:20)
[2024-06-29] MEDS: AMIODARONE 360mg/200mL PREMIX 200 ML IV ONE (04:31)
[2024-06-29 05:44] LABS: Basophils # (auto) 0 10 ^3/uL (0-0.2); Basophils % (auto) 0.1 % (0.0-2.0); Eosinophils # (auto) 0 10 ^3/uL (0-0.8); Hematocrit 30.2 % (36.0-46.0); Hemoglobin 9.6 g/dL (12.2-16.2); Lymphocytes # (auto) 0.6 10 ^3/uL (0.4-5.4); Lymphocytes % (auto) 4.4 % (10.0-50.0); Mean Corpuscular Volume 90.7 fL (80.0-100.0); Monocytes # (auto) 0.3 10 ^3/uL (0-1.3); Monocytes % (auto) 2.1 % (0.0-12.0); Neutrophils # (auto) 13.7 10 ^3/uL (1.6-8.6); Neutrophils % (auto) 93.4 % (37.0-80.0); Nucleated Red Blood Cells % 0.1 %; Platelet Count (auto) 72 10^3/uL (140-450); Red Blood Cells 3.33 10^6/uL (4.0-5.20); Red Cell Distribution Width 15.8 % (11.8-14.3); White Blood Cell 14.7 10^3/uL (4.4-10.8)
[2024-06-29] MEDS: ALBUMIN 25% 50 ML IV ONE (05:48)
[2024-06-29 05:57] LABS: Anion Gap 18 (5-15); Aspartate Aminotransferase 16 U/L (13-40); BUN/Creatinine Ratio 12.8 (10.0-20.0); Magnesium 2.3 mg/dL (1.6-2.6)
[2024-06-29 06:00] LABS: Alanine Aminotransferase < 9 U/L (7-40); Albumin 2.2 g/dL (3.2-4.8); Alkaline Phosphatase 273 U/L (46-116); Bilirubin, Total 0.2 mg/dL (0.2-1.0); Blood Urea Nitrogen 57 mg/dL (9-23); Calcium 8.2 mg/dL (8.7-10.4); Carbon Dioxide 16 mmol/L (20-31); Chloride 93 mmol/L (98-107); Glucose 259 mg/dL (74-106); Potassium 3.2 mmol/L (3.5-5.1); Sodium 127 mmol/L (136-145); Total Protein 3.8 g/dL (5.7-8.2)
--- NOTE | 2024-06-29 09:31 | DVHPN2 ---
Progress Note Date Seen: Jun 29, 2024 Medical Necessity Reason Pt with a Central, PICC or Fol: No Objective vital signs Vital Sign Date Time Temp Pulse Resp B/P (MAP) Pulse Ox O2 Delivery O2 Flow Rate FiO2 06/29/24 07:20 92 15 98 Room Air* 0 21 06/29/24 07:20 97.8 98/95 (96) 97.8 Total Intake and Output 06/28/24 06/28/24 06/29/24 15:00 23:00 07:00 Intake Total 58.31 ml 100 ml Balance 58.31 ml 100 ml medications Current Medications Medications Dose Ordered Sig/Antonio Route Start Time Stop Time Status Last Admin Dose Admin Carbidopa/Levodopa 1 tab TID PO 06/25/24 22:00 06/29/24 06:00 1 TAB Atorvastatin Calcium 20 mg HS PO 06/25/24 22:00 06/28/24 21:50 20 MG Diagnostic Test (Pha) 1 strip ACHS 06/25/24 22:00 06/29/24 06:46 1 STRIP Insulin Human Regular ACHS SC 06/25/24 22:00 06/29/24 06:48 4 UNITS Dextrose 50 ml UD PRN IV 06/25/24 18:45 Acetaminophen/ Hydrocodone Bitart 1 tab Q4HP PRN PO 06/25/24 18:45 06/28/24 20:53 1 TAB Ondansetron HCl 4 mg Q4HP PRN IV 06/25/24 18:45 Acetaminophen 650 mg Q6HP PRN PO 06/25/24 18:45 Piperacillin Sod/ Tazobactam Sod 100 ml @ 25 mls/hr Q12HR IV 06/26/24 10:00 06/28/24 21:52 25 MLS/HR Vancomycin HCl 0 ml @ 0 mls/hr UD IV 06/26/24 07:00 Pantoprazole Sodium 40 mg DAILY@0600 PO 06/27/24 06:00 06/29/24 06:00 40 MG laboratory and microbiology Laboratory Tests 06/29/24 05:14 06/29/24 04:58 Test 06/29/24 05:14 Range/Units Serum Glucose 259 H 74-106 mg/dL Problem List/Assessment/Plan Problem List/Assessment/Plan 06/27/24 PATIENT WITH LARGE SACRAL WOUND NEEDS DEBRIDEMENT AND ULTIMATELY WILL NEED WOUND COVERAGE BY PLASTIC SURGEON, SHOULD HAVE A COLOSTOMY HOWEVER 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 DEBRIDEMENT TODAY WAS CANCELLED DUE TO ANESTHESIA'S CONCERN ABOUT NEED FOR DIALYSIS,TRANSFUSION AND CORRECTION OF ELECTROLYTE IMBALANCE, PLEASE NOTIFY ME WHEN PATIENT IS MEDICALLY STABLE TO UNDERGO DEBRIDEMENT 06/29/24 informed by that patient's family would only allow :"minor"procedure and want patient to ho home on hospice/ as the debridement of her wound would be an extensive major operation that woukld eventually require plastic surgical intervention to cover the wound(down to periosteum),i believe she should be spared the operation and avail herself of hospice services. I will sign off, please recall if situation changes Plan discussed with: Other Dietary Evaluation Review Comments: 1. Consider Nepro WITH CARB STEADY PO supplement or tube feedidng 35-40 ml hr, adjust for pt's tolerance for nutrition support if pt GI accessible and EN possible. 2. Consider Clinimix TPN for mix source of protein/amino acid for avoiding uremic symptoms. 3. Consider TPN per pharmacy if NPO > 7 days and EN route is not feasible 4. Consider Abelardo BID for wound healing, when PO is possible, may dilute it with more water if pt experiences diarrhea and/or constipation. 5. Advance to her current diet order with Abelardo supplementation when passes a speech eval. Expected Outcomes/Goals: gradual heaaled wounds, icreased body strength, increased body weight. ARON LUNSFORD MD Jun 29, 2024 09:31
--- NOTE | 2024-06-29 10:15 | DVHPN2 ---
Subjective Alert Stable Comfortable Changes from previous H/P or p: Changes Objective Vitals Vital Signs Date Time Temp Pulse Resp B/P (MAP) Pulse Ox O2 Delivery O2 Flow Rate FiO2 06/29/24 07:20 92 15 98 Room Air* 0 21 06/29/24 07:20 97.8 98/95 (96) 97.8 Intake/Output Intake and Output 06/29/24 07:00 Intake Total 158.31 ml Balance 158.31 ml IV Total 158.31 ml General Appearance: Alert, Oriented X3, Cooperative Lungs: Clear to auscultation, Normal air movement Cardiovascular: Regular rate, Normal S1, Normal S2, No murmurs Abdomen: Normal bowel sounds, Soft, No tenderness Extremities: No edema Medications Current Medications Medications Dose Ordered Sig/Antonio Route Start Time Stop Time Status Last Admin Dose Admin Carbidopa/Levodopa 1 tab TID PO 06/25/24 22:00 06/29/24 06:00 1 TAB Atorvastatin Calcium 20 mg HS PO 06/25/24 22:00 06/28/24 21:50 20 MG Diagnostic Test (Pha) 1 strip ACHS 06/25/24 22:00 06/29/24 06:46 1 STRIP Insulin Human Regular ACHS SC 06/25/24 22:00 06/29/24 06:48 4 UNITS Dextrose 50 ml UD PRN IV 06/25/24 18:45 Acetaminophen/ Hydrocodone Bitart 1 tab Q4HP PRN PO 06/25/24 18:45 06/28/24 20:53 1 TAB Ondansetron HCl 4 mg Q4HP PRN IV 06/25/24 18:45 Acetaminophen 650 mg Q6HP PRN PO 06/25/24 18:45 Piperacillin Sod/ Tazobactam Sod 100 ml @ 25 mls/hr Q12HR IV 06/26/24 10:00 06/28/24 21:52 25 MLS/HR Vancomycin HCl 0 ml @ 0 mls/hr UD IV 06/26/24 07:00 Pantoprazole Sodium 40 mg DAILY@0600 PO 06/27/24 06:00 06/29/24 06:00 40 MG Laboratory Results Laboratory Tests 06/29/24 04:58 06/29/24 05:14 Chemistry Test 06/29/24 05:14 Albumin 2.2 g/dL (3.2-4.8) L Calcium Level 8.2 mg/dL (8.7-10.4) L Magnesium Level 2.3 mg/dL (1.6-2.6) Total Protein 3.8 g/dL (5.7-8.2) L LFT Test 06/29/24 05:14 Alanine Aminotransferase (ALT) < 9 U/L (7-40) Alkaline Phosphatase 273 U/L (46-116) H Aspartate Amino Transferase (AST) 16 U/L (13-40) Total Bilirubin 0.2 mg/dL (0.2-1.0) Urinalysis Test 06/26/24 13:20 Urine Color Light-orange (Yellow) Urine Clarity Ex.turbid (Clear) Urine pH 6.5 (5.0-9.0) Urine Specific [place] 1.016 (1.001-1.035) Urine Protein 3+ (Negative) H Urine Ketones Negative (Negative) Urine Blood 3+ /uL (Negative) H Urine Nitrite Negative (Negative) Urine Bilirubin Negative (Negative) Urine Urobilinogen Normal mg/dL (Negative) Urine Leukocyte Esterase 3+ /uL (Negative) Urine RBC 58 /hpf (0 - 4) Urine WBC 165 /hpf (0 - 5) Urine WBC Clumps Present /hpf (None Seen) Urine Squamous Epithelial Cells Many /hpf (<5) Urine Bacteria Many /hpf (None Seen) H Urine Yeast (Budding) Moderate /hpf (None Seen) Urine Glucose Normal mg/dL (Normal) Microbiology Microbiology Date/Time Source Procedure Growth Status 06/26/24 13:40 Sacrum Gram Stain - Final Resulted 06/26/24 13:40 Wound Culture - Preliminary Escherichia coli Resulted 06/25/24 20:50 Blood Blood Culture - Preliminary NO GROWTH AFTER 72 HOURS OF INCUBATION. Resulted Assessment/Plan Assessment/Plan Sepsis with septic shock Infected decub ulcer Debility Hypokalemia Hypomagnesemia ESRD DM2 HTN Dementia Parkinson's D. Anemia of CKD Leukocytosis due to sepsis PLAN: IV antibiotics: Zosyn and Vanco Surgical consult I&D tomorrow Telemetry Replace K+ & Mg Sinemet Start diet NPO after midnight 06/28/24: Wound care Downgrade to Tele IV antibiotics Change amiodarone to po DC Levophed PD per nephrology: Patient gets PD by Dr. Sae Braswell, talked Dr. Olguin, he is covering for him and will give PD orders DNR Discussed with Dr. Woodward, she is not a candidate for surgery, she would need an extensive surgery with possible colostomy Family declines aggressive treatments, Discussed with daughter and granddaughter at the bedside, DNR, comfort Tx They are interested in hospice at home Consult Hospice 06/29/24: No change Continue current Tx Not a candidate for surgery DNR Hospice consult DC home on Hospice in am Plan discussed with: Other My Orders Orders - JEAN-PIERRE CARDENAS MD Procedure Category Date Status Time Transfer Orders XFER 06/28/24 Transmitted 11:04 Refer To Hospice ALFREDO 06/28/24 In Process 11:12 * Line Crewman CONS 06/28/[address] Del Olguin CONS 06/28/24 Transmitted 11:26 Date of Service: Jun 29, 2024 Billing Provider: JEAN-PIERRE CARDENAS MD Common Visit Codes: NOT BILLABLE JEAN-PIERRE CARDENAS MD Jun 29, 2024 10:15
[2024-06-29] MEDS: AMIODARONE 360mg/200mL PREMIX 200 ML IV SCH (12:32)
[2024-06-29] MEDS: PIPERACILLIN-TAZOB 3.375GM 100 ML IV SCH (16:22)
[2024-06-29] MEDS: AMIODARONE HCL 200 MG TAB PO ONE (17:17)
--- NOTE | 2024-06-29 20:26 | DVHPN2 ---
Progress Note - Dictate Date Seen: Jun 29, 2024 Medical Necessity Reason Pt with a Central, PICC or Fol: No Subjective Patient was seen and evaluated in follow up. No significant acute events overnight. Patient is A&Ox1. Stable, comfortable. Discussed with DAGO Lyons regarding PD orders. Patient was transferred to unit today and orders given to ER nurse for dialysis were not placed. Patient's daughter was asked to bring in PD supplies to continue treatments with home cycler. vital signs Vital Sign Date Time Temp Pulse Resp B/P (MAP) Pulse Ox O2 Delivery O2 Flow Rate FiO2 06/29/24 17:00 97.6 105 18 105/53 (70) 98 97.6 06/29/24 08:00 Room Air* 0 21 Total Intake and Output 06/28/24 06/28/24 06/29/24 15:00 23:00 07:00 Intake Total 58.31 ml 100 ml Balance 58.31 ml 100 ml medications Current Medications Medications Dose Ordered Sig/Antonio Route Start Time Stop Time Status Last Admin Dose Admin Carbidopa/Levodopa 1 tab TID PO 06/25/24 22:00 06/29/24 16:20 1 TAB Atorvastatin Calcium 20 mg HS PO 06/25/24 22:00 06/28/24 21:50 20 MG Diagnostic Test (Pha) 1 strip ACHS 06/25/24 22:00 06/29/24 17:17 1 STRIP Insulin Human Regular ACHS SC 06/25/24 22:00 06/29/24 13:16 3 UNITS Dextrose 50 ml UD PRN IV 06/25/24 18:45 Acetaminophen/ Hydrocodone Bitart 1 tab Q4HP PRN PO 06/25/24 18:45 06/29/24 11:38 1 TAB Ondansetron HCl 4 mg Q4HP PRN IV 06/25/24 18:45 Acetaminophen 650 mg Q6HP PRN PO 06/25/24 18:45 Vancomycin HCl 0 ml @ 0 mls/hr UD IV 06/26/24 07:00 Pantoprazole Sodium 40 mg DAILY@0600 PO 06/27/24 06:00 06/29/24 06:00 40 MG Piperacillin Sod/ Tazobactam Sod 100 ml @ 25 mls/hr Q12H IV 06/29/24 16:00 06/29/24 16:22 25 MLS/HR Amiodarone HCl 200 mg Q12HR PO 06/29/24 22:00 objective Vitals and nursing notes reviewed. General Appearance: ALOC. Obtunded. Moderate acute distress Head Exam: Normal inspection Neck Exam: Normal inspection. Normal alignment Pulmonary/Respiratory: Clear bilateral breath sounds Cardiovascular/Chest: Irregularly irregular rate and rhythm. No murmurs. Abdominal Exam: Normal bowel sounds. Soft. Lower extremities: Positive lower extremity edema Neuro/Mental Status: ALOC. Obtunded Skin Exam: See wound care pictures/documentation laboratory and microbiology Laboratory Tests 06/29/24 05:14 06/29/24 04:58 Test 06/29/24 05:14 Range/Units Serum Glucose 259 H 74-106 mg/dL Problem List Sepsis with septic shock Infected decub ulcer Hypokalemia Hypomagnesemia ESRD on PD DM2 Hypertension Parkinson's D. Anemia of CKD Assessment/Plan Agree with current supportive medical care. Patient is not a candidate for surgery. Family has opted for comfort treatments, DNR. Interested in Hospice at home. Resume PD treatments. Patient's daughter to bring in PD supplies and cycler. IV antibiotics with Zosyn and Vancomycin. Pain management prn. Protonix 40 mg PO daily. Wound care as recommended. Additional plan as per the hospital course. Dietary Evaluation Review Comments: 1. Consider Nepro WITH CARB STEADY PO supplement or tube feedidng 35-40 ml hr, adjust for pt's tolerance for nutrition support if pt GI accessible and EN possible. 2. Consider Clinimix TPN for mix source of protein/amino acid for avoiding uremic symptoms. 3. Consider TPN per pharmacy if NPO > 7 days and EN route is not feasible 4. Consider Abelardo BID for wound healing, when PO is possible, may dilute it with more water if pt experiences diarrhea and/or constipation. 5. Advance to her current diet order with Abelardo supplementation when passes a speech eval. Expected Outcomes/Goals: gradual heaaled wounds, icreased body strength, increased body weight. Plan discussed with: Patient, Other (Patient's daughter ; DAGO Lyons) CC Plasma Assessment Blood Product Administration S: 143 SAMMIE GERARDO DO Jun 29, 2024 20:26
[2024-06-29] MEDS: AMIODARONE HCL 200 MG TAB PO SCH (22:00)
[2024-06-30] VITALS (9 sets, daily range): BP systolic 86–112; BP diastolic 41–85; PULSE 83–116; RESP 16–20; TEMP 97.5–98.7; O2SAT 93–100
[2024-06-30 06:43] LABS: Anion Gap 19 (5-15)
[2024-06-30 06:46] LABS: Calcium 8.6 mg/dL (8.7-10.4); Carbon Dioxide 16 mmol/L (20-31); Chloride 93 mmol/L (98-107); Potassium 2.7 mmol/L (3.5-5.1); Sodium 128 mmol/L (136-145)
[2024-06-30 06:48] LABS: BUN/Creatinine Ratio 11.8 (10.0-20.0)
[2024-06-30 06:51] LABS: Blood Urea Nitrogen 49 mg/dL (9-23); Glucose 251 mg/dL (74-106)
[2024-06-30] MEDS: POTASSIUM CHLORIDE 60 MEQ, LIDOCAINE 1% (LOCAL ANESTH.) 6 ML in SODIUM CHL 0.9% 500 ML IV ONE (09:41)
--- NOTE | 2024-06-30 09:56 | DVHDS2 ---
Discharge Summary Date of Admission Jun 25, 2024 at 18:37 Date of Discharge: Jun 30, 2024 Labs/Diagnostic Data: Laboratory Results Test 06/30/24 06:47 06/30/24 04:55 06/29/24 05:14 06/29/24 04:58 POC Glucose 227 mg/dl (70-106) Sodium Level 128 mmol/L (136-145) Potassium Level 2.7 mmol/L (3.5-5.1) Chloride Level 93 mmol/L (98-107) Carbon Dioxide Level 16 mmol/L (20-31) Anion Gap 19 (5-15) Blood Urea Nitrogen 49 mg/dL (9-23) Creatinine 4.16 mg/dL (0.550-1.02) Glomerular Filtration Rate Calc 10 mL/min (>90) BUN/Creatinine Ratio 11.8 (10.0-20.0) Serum Glucose 251 mg/dL (74-106) Calcium Level 8.6 mg/dL (8.7-10.4) Random Vancomycin Level 20.6 ug/mL (5-10) Magnesium Level 2.3 mg/dL (1.6-2.6) Total Bilirubin 0.2 mg/dL (0.2-1.0) Aspartate Amino Transferase (AST) 16 U/L (13-40) Alanine Aminotransferase (ALT) < 9 U/L (7-40) Alkaline Phosphatase 273 U/L (46-116) Total Protein 3.8 g/dL (5.7-8.2) Albumin 2.2 g/dL (3.2-4.8) White Blood Count 14.7 10^3/uL (4.4-10.8) Red Blood Count 3.33 10^6/uL (4.0-5.20) Hemoglobin 9.6 g/dL (12.2-16.2) Hematocrit 30.2 % (36.0-46.0) Mean Corpuscular Volume 90.7 fL (80.0-100.0) Mean Corpuscular Hemoglobin 29.0 pg (28.0-32.0) Mean Corpuscular Hemoglobin Concent 32.0 g/dL (32.0-36.0) Red Cell Distribution Width 15.8 % (11.8-14.3) Platelet Count 72 10^3/uL (140-450) Mean Platelet Volume 8.3 fL (6.9-10.8) Neutrophils (%) (Auto) 93.4 % (37.0-80.0) Lymphocytes (%) (Auto) 4.4 % (10.0-50.0) Monocytes (%) (Auto) 2.1 % (0.0-12.0) Eosinophils (%) (Auto) 0.0 % (0.0-7.0) Basophils (%) (Auto) 0.1 % (0.0-2.0) Neutrophils # (Auto) 13.7 10 ^3/uL (1.6-8.6) Lymphocytes # (Auto) 0.6 10 ^3/uL (0.4-5.4) Monocytes # (Auto) 0.3 10 ^3/uL (0-1.3) Eosinophils # (Auto) 0 10 ^3/uL (0-0.8) Basophils # (Auto) 0 10 ^3/uL (0-0.2) Nucleated Red Blood Cells 0.1 % Test 06/29/24 00:15 06/27/24 05:35 06/26/24 14:44 06/26/24 13:20 Stool Occult Blood Negative (Negative) Stool Occult Blood Sample #3 (Negative) B-Type Natriuretic Peptide 155.96 pg/mL (0-100) Thyroid Stimulating Hormone (TSH) 0.93 uIU/mL (0.55-4.78) Prothrombin Time 13.0 sec (9.3-11.8) Prothrombin Time INR 1.25 (0.9-1.15) Activated Partial Thromboplast Time 31.0 SEC (24.5-34.5) Urine Color Light-orange (Yellow) Urine Clarity Ex.turbid (Clear) Urine pH 6.5 (5.0-9.0) Urine Specific [place] 1.016 (1.001-1.035) Urine Protein 3+ (Negative) Urine Ketones Negative (Negative) Urine Blood 3+ /uL (Negative) Urine Nitrite Negative (Negative) Urine Bilirubin Negative (Negative) Urine Urobilinogen Normal mg/dL (Negative) Urine Leukocyte Esterase 3+ /uL (Negative) Urine RBC 58 /hpf (0 - 4) Urine WBC 165 /hpf (0 - 5) Urine WBC Clumps Present /hpf (None Seen) Urine Squamous Epithelial Cells Many /hpf (<5) Urine Bacteria Many /hpf (None Seen) Urine Yeast (Budding) Moderate /hpf (None Seen) Urine Glucose Normal mg/dL (Normal) Test 06/26/24 09:25 06/26/24 06:01 06/25/24 12:13 Lactic Acid Level 4.4 mmol/L (0.4-2.0) Phosphorus Level 5.9 mg/dL (2.4-5.1) Differential Total Cells Counted 100.0 (100) Neutrophils % (Manual) 81 (37.0-80.0) Band Neutrophils % (Manual) 6 Lymphocytes % (Manual) 12 (10.0-50.0) Monocytes % (Manual) 1 (0-12) Eosinophils % (Manual) 0 (0-7) Basophils % (Manual) 0 (0.0-2.0) Metamyelocytes % (manual) 0 Myelocytes % (Manual) 0 Promyelocytes % (Manual) 0 Blast Cells % (Manual) 0 Reactive Lymphocytes 0 Platelet Estimate Adequate Large Platelets Few Polychromasia Slight Troponin I High Sensitivity 13 ng/L (</=34) Other Laboratory Tests 06/30/24 04:55 06/29/24 04:58 Brief Hx & Hospital Course: Final diagnoses: Sepsis with septic shock Infected decub ulcer Debility Hypokalemia Hypomagnesemia ESRD on PD DM2 HTN Dementia Parkinson's D. Anemia of CKD Leukocytosis due to sepsis 79-year-old female who was admitted for weakness and decubitus wound and low blood pressure was sepsis and hypokalemia and hypomagnesemia She was given IV antibiotics She is on dialysis at home The patient was seen by General surgery here, was recommended conservative treatment since if she would need surgery would be a major surgery and the patient's family did not want her to have aggressive treatments and therefore we recommended conservative treatment. We also recommended to the family hospice care at home and they accepted The patient can be discharged home on hospice once it is arranged Condition at Discharge: Poor Final Diagnosis/Problems List Sepsis with septic shock Infected decub ulcer Debility Hypokalemia Hypomagnesemia ESRD DM2 HTN Dementia Parkinson's D. Anemia of CKD Leukocytosis due to sepsis Discharge Disposition: Hospice - Home SNF Discharge Will this Physician continue t: No Discharge Instruct/Medications Diet: Regular Activity: No Restrictions, As Tolerated Follow Up/Referral: Hospice at home Medications: Per hospice Discharge Statement: "Patient was advised to return to the ER or call 911 if any headaches, dizziness, shortness of breath, chest pain, abdominal pain, bleeding, fevers, or worsening of medical condition. Patient was counseled about treatment plan, medications, possible side effects, patientverbalized understanding. All questions were answered to the best of my ability. This discharge took greater then 30 minutes in planning, reviewing documentation, counseling the patient, and discussing with other team members." ASSESSMENT ASSESSMENT Assessment Sepsis with septic shock Infected decub ulcer Debility Hypokalemia Hypomagnesemia ESRD DM2 HTN Dementia Parkinson's D. Anemia of CKD Leukocytosis due to sepsis Date of Service: Jun 30, 2024 Billing Provider: JEAN-PIERRE CARDENAS MD Common Visit Codes: NOT BILLABLE JEAN-PIERRE CARDENAS MD Jun 30, 2024 09:56
--- NOTE | 2024-06-30 20:09 | DVHPN2 ---
Progress Note - Dictate Date Seen: Jun 30, 2024 Medical Necessity Reason Pt with a Central, PICC or Fol: No Subjective Patient was seen and evaluated in follow up. No significant acute events overnight. Patient is stable, no pain or distress. Not able to move in bed. Per RN, patient is not eating or taking pills. Patient is planned to be discharged home on Hospice care once it is all set up. vital signs Vital Sign Date Time Temp Pulse Resp B/P (MAP) Pulse Ox O2 Delivery O2 Flow Rate FiO2 06/30/24 17:00 98.6 83 20 86/41 (56) 93 98.6 06/30/24 08:01 Room Air* 0 21 Total Intake and Output 06/29/24 06/29/24 06/30/24 15:00 23:00 07:00 Intake Total 130 ml 70 ml Output Total 15 ml 1 ml Balance -15 ml 129 ml 70 ml medications Current Medications Medications Dose Ordered Sig/Antonio Route Start Time Stop Time Status Last Admin Dose Admin Carbidopa/Levodopa 1 tab TID PO 06/25/24 22:00 06/30/24 13:24 1 TAB Atorvastatin Calcium 20 mg HS PO 06/25/24 22:00 06/28/24 21:50 20 MG Diagnostic Test (Pha) 1 strip ACHS 06/25/24 22:00 06/30/24 17:14 1 STRIP Insulin Human Regular ACHS SC 06/25/24 22:00 06/30/24 11:30 3 UNITS Dextrose 50 ml UD PRN IV 06/25/24 18:45 Acetaminophen/ Hydrocodone Bitart 1 tab Q4HP PRN PO 06/25/24 18:45 06/29/24 11:38 1 TAB Ondansetron HCl 4 mg Q4HP PRN IV 06/25/24 18:45 Acetaminophen 650 mg Q6HP PRN PO 06/25/24 18:45 Vancomycin HCl 0 ml @ 0 mls/hr UD IV 06/26/24 07:00 Pantoprazole Sodium 40 mg DAILY@0600 PO 06/27/24 06:00 06/29/24 06:00 40 MG Piperacillin Sod/ Tazobactam Sod 100 ml @ 25 mls/hr Q12H IV 06/29/24 16:00 06/30/24 17:14 25 MLS/HR Amiodarone HCl 200 mg Q12HR PO 06/29/24 22:00 06/30/24 13:25 200 MG objective Vitals and nursing notes reviewed. General Appearance: ALOC. Obtunded. Moderate acute distress Head Exam: Normal inspection Neck Exam: Normal inspection. Normal alignment Pulmonary/Respiratory: Clear bilateral breath sounds Cardiovascular/Chest: Irregularly irregular rate and rhythm. No murmurs. Abdominal Exam: Normal bowel sounds. Soft. Lower extremities: Positive lower extremity edema Neuro/Mental Status: ALOC. Obtunded Skin Exam: See wound care pictures/documentation laboratory and microbiology Laboratory Tests 06/30/24 04:55 06/29/24 04:58 Test 06/30/24 04:55 Range/Units Serum Glucose 251 H 74-106 mg/dL Problem List Sepsis with septic shock Infected decub ulcer Hypokalemia Hypomagnesemia ESRD on PD DM2 Hypertension Parkinson's D. Anemia of CKD Assessment/Plan Agree with current supportive medical care. Patient is not a candidate for surgery. Family has opted for comfort treatments, DNR. To be discharged home with Hospice. Continue PD with home PD supplies and cycler. Daughter is assisting with treatments. Potassium 60 meq. IV antibiotics with Zosyn and Vancomycin. Pain management prn. Wound care as recommended. Additional plan as per the hospital course. Dietary Evaluation Review Comments: 1. Consider Nepro WITH CARB STEADY PO supplement or tube feedidng 35-40 ml hr, adjust for pt's tolerance for nutrition support if pt GI accessible and EN possible. 2. Consider Clinimix TPN for mix source of protein/amino acid for avoiding uremic symptoms. 3. Consider TPN per pharmacy if NPO > 7 days and EN route is not feasible 4. Consider Abelardo BID for wound healing, when PO is possible, may dilute it with more water if pt experiences diarrhea and/or constipation. 5. Advance to her current diet order with Abelardo supplementation when passes a speech eval. Expected Outcomes/Goals: gradual heaaled wounds, icreased body strength, increased body weight. Plan discussed with: Other (RN) CC Plasma Assessment Blood Product Administration S: [id number] SAMMIE GERARDO DO Jun 30, 2024 20:09
[2024-07-01 01:00] VITALS: BP 112/62; PULSE 87; RESP 18; TEMP 97.3; O2SAT 97
[2024-07-01 05:00] VITALS: BP 129/73; PULSE 94; RESP 18; TEMP 97.8; O2SAT 97
[2024-07-01 07:39] LABS: Anion Gap 18 (5-15)
[2024-07-01 07:44] LABS: BUN/Creatinine Ratio 11.2 (10.0-20.0)
[2024-07-01 07:47] LABS: Blood Urea Nitrogen 43 mg/dL (9-23); Calcium 8.4 mg/dL (8.7-10.4); Carbon Dioxide 19 mmol/L (20-31); Chloride 94 mmol/L (98-107); Glucose 229 mg/dL (74-106); Potassium 3.4 mmol/L (3.5-5.1); Sodium 131 mmol/L (136-145)
[2024-07-01 08:00] VITALS: PULSE 88
--- NOTE | 2024-07-01 08:32 | DVHPN2 ---
Subjective More alert Stable Comfortable Changes from previous H/P or p: Changes Objective Vitals Vital Signs Date Time Temp Pulse Resp B/P (MAP) Pulse Ox O2 Delivery O2 Flow Rate FiO2 07/01/24 08:07 Room Air* 0 21 07/01/24 05:00 97.8 94 18 129/73 (91) 97 97.8 Intake/Output Intake and Output 07/01/24 07:00 Intake Total 861 ml Output Total 0 ml Balance 861 ml Intake Oral 100 ml IV Total 761 ml Output Urine Total 0 ml General Appearance: Alert, Oriented X3, Cooperative Lungs: Clear to auscultation, Normal air movement Cardiovascular: Regular rate, Normal S1, Normal S2, No murmurs Abdomen: Normal bowel sounds, Soft, No tenderness Extremities: No edema Medications Current Medications Medications Dose Ordered Sig/Antonio Route Start Time Stop Time Status Last Admin Dose Admin Carbidopa/Levodopa 1 tab TID PO 06/25/24 22:00 07/01/24 05:40 1 TAB Atorvastatin Calcium 20 mg HS PO 06/25/24 22:00 06/30/24 22:22 20 MG Diagnostic Test (Pha) 1 strip ACHS 06/25/24 22:00 07/01/24 06:25 1 STRIP Insulin Human Regular ACHS SC 06/25/24 22:00 07/01/24 06:27 4 UNITS Dextrose 50 ml UD PRN IV 06/25/24 18:45 Acetaminophen/ Hydrocodone Bitart 1 tab Q4HP PRN PO 06/25/24 18:45 07/01/24 05:40 1 TAB Ondansetron HCl 4 mg Q4HP PRN IV 06/25/24 18:45 Acetaminophen 650 mg Q6HP PRN PO 06/25/24 18:45 Vancomycin HCl 0 ml @ 0 mls/hr UD IV 06/26/24 07:00 Pantoprazole Sodium 40 mg DAILY@0600 PO 06/27/24 06:00 07/01/24 05:40 40 MG Piperacillin Sod/ Tazobactam Sod 100 ml @ 25 mls/hr Q12H IV 06/29/24 16:00 07/01/24 04:12 25 MLS/HR Amiodarone HCl 200 mg Q12HR PO 06/29/24 22:00 06/30/24 22:18 200 MG Laboratory Results Laboratory Tests 06/29/24 04:58 07/01/24 05:00 Chemistry Test 07/01/24 05:00 Calcium Level 8.4 mg/dL (8.7-10.4) L Urinalysis Test 06/26/24 13:20 Urine Color Light-orange (Yellow) Urine Clarity Ex.turbid (Clear) Urine pH 6.5 (5.0-9.0) Urine Specific [place] 1.016 (1.001-1.035) Urine Protein 3+ (Negative) H Urine Ketones Negative (Negative) Urine Blood 3+ /uL (Negative) H Urine Nitrite Negative (Negative) Urine Bilirubin Negative (Negative) Urine Urobilinogen Normal mg/dL (Negative) Urine Leukocyte Esterase 3+ /uL (Negative) Urine RBC 58 /hpf (0 - 4) Urine WBC 165 /hpf (0 - 5) Urine WBC Clumps Present /hpf (None Seen) Urine Squamous Epithelial Cells Many /hpf (<5) Urine Bacteria Many /hpf (None Seen) H Urine Yeast (Budding) Moderate /hpf (None Seen) Urine Glucose Normal mg/dL (Normal) Microbiology Microbiology Date/Time Source Procedure Growth Status 06/26/24 13:40 Sacrum Gram Stain - Final Resulted 06/26/24 13:40 Wound Culture - Preliminary Escherichia coli Resulted 06/25/24 20:50 Blood Blood Culture - Final NO GROWTH AFTER 5 DAYS OF INCUBATION. Complete Assessment/Plan Assessment/Plan Sepsis with septic shock Infected decub ulcer Debility Hypokalemia Hypomagnesemia ESRD DM2 HTN Dementia Parkinson's D. Anemia of CKD Leukocytosis due to sepsis PLAN: IV antibiotics: Zosyn and Vanco Surgical consult I&D tomorrow Telemetry Replace K+ & Mg Sinemet Start diet NPO after midnight 06/28/24: Wound care Downgrade to Tele IV antibiotics Change amiodarone to po DC Levophed PD per nephrology: Patient gets PD by Dr. Sae Braswell, talked Dr. Olguin, he is covering for him and will give PD orders DNR Discussed with Dr. Woodward, she is not a candidate for surgery, she would need an extensive surgery with possible colostomy Family declines aggressive treatments, Discussed with daughter and granddaughter at the bedside, DNR, comfort Tx They are interested in hospice at home Consult Hospice 07/01/24: DC home on hospice Plan discussed with: Other My Orders Orders - JEAN-PIERRE CARDENAS MD Procedure Category Date Status Time Discharge DISCHARGE 06/30/24 Transmitted 09:51 Date of Service: Jul 01, 2024 Billing Provider: JEAN-PIERRE CARDENAS MD Common Visit Codes: NOT BILLABLE JEAN-PIERRE CARDENAS MD Jul 01, 2024 08:32
[2024-07-01 09:02] VITALS: BP 84/44; PULSE 84; RESP 18; TEMP 97.7; O2SAT 99
[2024-07-01 13:00] VITALS: BP 100/50; PULSE 83; RESP 19; TEMP 98.2; O2SAT 100
--- NOTE | 2024-07-01 20:14 | DVHPN2 ---
Progress Note - Dictate Date Seen: Jul 01, 2024 Medical Necessity Reason Pt with a Central, PICC or Fol: No Subjective Patient was seen and evaluated in follow up. No significant acute events overnight. Patient is tolerating cares. No pain or distress noted. Planned for discharge home today with Hospice care. vital signs Vital Sign Date Time Temp Pulse Resp B/P (MAP) Pulse Ox O2 Delivery O2 Flow Rate FiO2 07/01/24 13:00 98.2 83 19 100/50 (67) 100 98.2 07/01/24 08:07 Room Air* 0 21 Total Intake and Output 06/30/24 06/30/24 07/01/24 15:00 23:00 07:00 Intake Total 50 ml 636 ml 175 ml Output Total 0 ml 0 ml Balance 50 ml 636 ml 175 ml objective Vitals and nursing notes reviewed. General Appearance: ALOC. Obtunded. Moderate acute distress Head Exam: Normal inspection Neck Exam: Normal inspection. Normal alignment Pulmonary/Respiratory: Clear bilateral breath sounds Cardiovascular/Chest: Irregularly irregular rate and rhythm. No murmurs. Abdominal Exam: Normal bowel sounds. Soft. Lower extremities: Positive lower extremity edema Neuro/Mental Status: ALOC. Obtunded Skin Exam: See wound care pictures/documentation laboratory and microbiology Laboratory Tests 07/01/24 05:00 06/29/24 04:58 Test 07/01/24 05:00 Range/Units Serum Glucose 229 H 74-106 mg/dL Problem List Sepsis with septic shock Infected decub ulcer Hypokalemia Hypomagnesemia ESRD on PD DM2 Hypertension Parkinson's D. Anemia of CKD Assessment/Plan Agree with all current supportive medical care. Patient is not a candidate for surgery. Family has opted for comfort treatments, DNR. Continue PD with home PD supplies and cycler. Daughter is assisting with treatments. To be discharged home with Hospice. No further input from Nephrology standpoint. Will sign off. Dietary Evaluation Review Comments: 1. Consider Nepro WITH CARB STEADY PO supplement or tube feedidng 35-40 ml hr, adjust for pt's tolerance for nutrition support if pt GI accessible and EN possible. 2. Consider Clinimix TPN for mix source of protein/amino acid for avoiding uremic symptoms. 3. Consider TPN per pharmacy if NPO > 7 days and EN route is not feasible 4. Consider Abelardo BID for wound healing, when PO is possible, may dilute it with more water if pt experiences diarrhea and/or constipation. 5. Advance to her current diet order with Abelardo supplementation when passes a speech eval. Expected Outcomes/Goals: gradual heaaled wounds, icreased body strength, increased body weight. Plan discussed with: Daughter, Other (RN) CC Plasma Assessment Blood Product Administration S: [id number] SAMMIE GERARDO DO Jul 01, 2024 20:14
== END 2024-07-01 17:05 | disposition hospice, home (50) | DRG 871 ==
LOC: EDBD 11:35 → ER 11:47 → OVERFLOW 18:37 → UNDODEPER 06-26 03:43 → CENTRAL 06-29 10:12 → TELE-CENTR 06-29 20:22
PROVIDERS: ADMIT Internal Medicine Geriatric Medicine; ATTEND Internal Medicine Geriatric Medicine
PROC: 02HV33Z Insertion of Infusion Device into Superior Vena Cava, Percutaneous Approach (ICD-10-PCS; 2024-06-26)
PROC: 30233N1 Transfusion of Nonautologous Red Blood Cells into Peripheral Vein, Percutaneous Approach (ICD-10-PCS; principal; 2024-06-27)
DX: A41.9 Sepsis, unspecified organism (principal); N18.6 End stage renal disease; R65.21 Severe sepsis with septic shock; I12.0 Hypertensive chronic kidney disease with stage 5 chronic kidney disease or end stage renal disease; D63.1 Anemia in chronic kidney disease; E11.22 Type 2 diabetes mellitus with diabetic chronic kidney disease; E83.42 Hypomagnesemia; E87.6 Hypokalemia; F02.80 Dementia in other diseases classified elsewhere, unspecified severity, without behavioral disturbance, psychotic disturbance, mood disturbance, and anxiety; G20.A1 Parkinson's disease without dyskinesia, without mention of fluctuations; L89.159 Pressure ulcer of sacral region, unspecified stage; Z96.642 Presence of left artificial hip joint; I48.91 Unspecified atrial fibrillation; E86.1 Hypovolemia; Z66 Do not resuscitate; Z74.01 Bed confinement status; Z79.84 Long term (current) use of oral hypoglycemic drugs; Z79.899 Other long term (current) drug therapy; Z87.891 Personal history of nicotine dependence; Z90.710 Acquired absence of both cervix and uterus; Z88.8 Allergy status to other drugs, medicaments and biological substances; Z79.4 Long term (current) use of insulin; Z99.2 Dependence on renal dialysis; Z51.5 Encounter for palliative care
CPT/HCPCS: 36415; 36556; 71045; 74176; 80048; 80053; 80202; 81001; 82270; 82565; 82962; 83605; 83735; 83880; 84100; 84443; 84484; 85007; 85014; 85018; 85025; 85027; 85610; 85730; 86850; 86900; 86901; 86920; 87040; 87077; 87186; 87205; 93005; 93306; 93970; 99291; 99292; G0378; J1815; J2003; J2543; J3480; J3490